=== PATIENT | female | born 1935 | race Caucasian/White ===

== ENCOUNTER 2018-03-28 11:37 | Inpatient (IN) ==
--- NOTE | 2018-03-28 12:40 | Emergency Department Note ---
Disposition Clinical Impression: Syncopal episodes Qualifiers: Syncope type: unspecified Qualified Code(s): R55 - Syncope and collapse Closed fracture of distal end of radius Qualifiers: Encounter type: initial encounter Fracture morphology: other intra-articular Laterality: right Qualified Code(s): S52.571A - Other intraarticular fracture of lower end of right radius, initial encounter for closed fracture Disposition: Admitted As Inpatient Condition: Fair Forms: ED Satisfaction Letter Fall HPI - General Chief Complaint: ED Fall Stated Complaint: Fall/Right arm/head injury Time Seen by Provider: 03/28/18 11:52 Source: patient, family - History of Present Illness Pt Subjective Complaint: fall Onset (ago): hour(s) Fall From: standing Fall Witnessed: no Place Fall Occurred: home Loss of Consciousness: unsure Prolonged Down Time?: no Symptoms Prior to Fall: none Context: unknown Location of injury: head Location of injury - extremities: Right: hand (and wrist) Severity: moderate Quality: dull, aching Associated symptoms (after fall): Denies: headache, neck pain, numbness, weakness, chest pain, shortness of breath, abdominal pain, hematuria, unable to walk, lightheaded, vertigo, confusion - Related Data Home Medications Medication Instructions Recorded Confirmed Allopurinol [Zyloprim 300 MG] 300 mg PO DAILY 03/20/15 05/07/17 Carvedilol [Coreg] 12.5 mg PO BID 03/20/15 05/07/17 Cholecalciferol (Vitamin D3) 1,000 unit PO DAILY 03/20/15 05/07/17 [Vitamin D3] Cyclobenzaprine [Flexeril] 10 mg PO PRN PRN 03/20/15 05/07/17 Docusate Sodium [Colace] 100 mg PO BID PRN 03/20/15 05/07/17 Gabapentin [Neurontin] 800 mg PO TID 03/20/15 05/07/17 Polyethylene Glycol 3350 [MiraLAX] 17 gm PO DAILY PRN 03/20/15 05/07/17 Potassium Chloride 10 meq PO TID 03/20/15 05/07/17 [place] Oil/[place]-3 Fatty Acids 1 each PO DAILY 03/20/15 05/07/17 [Fish Oil 500 mg Softgel] Spironolactone [Aldactone] 25 mg PO DAILY 03/20/15 05/07/17 Aspirin 325 mg PO DAILY 06/04/15 05/07/17 Ergocalciferol (VITAMIN D2) 50,000 unit PO QWEEK 06/04/15 05/07/17 [Vitamin D2 (50,000 UNIT)] Sulindac 150 mg PO 2XW PRN 09/03/15 05/07/17 Oxycodone HCl/Acetaminophen 1 each PO Q6H PRN 12/27/15 05/07/17 [Percocet 7.5-325 mg Tablet] Citalopram [CeleXA] 20 mg PO DAILY 04/03/16 05/07/17 Calcium Carbonate/Vitamin D3 1 each PO DAILY 11/06/16 05/07/17 [Calcium 600 + Vit D Tablet] PredniSONE [Grady] 5 mg PO BID 11/06/16 05/07/17 Albuterol Sulfate [Ventolin Hfa] 18 gm IH AD PRN 09/11/17 09/11/17 Previous Rx's Medication Instructions Recorded Diazepam [Valium] 5 mg PO BID #21 tablet 06/13/15 Furosemide [Lasix] 40 mg PO DAILY tablet 06/13/15 MOM Conc [MILK OF MAGNESIA conc] 10 ml PO TID PRN #0 [id number] 06/13/15 Gluc HCl/Csa/Collagen/Hyalur A 1 each PO DAILY #90 capsule 12/28/15 [Glucosamine Chondroitin Cap] Letrozole [Femara] 2.5 mg PO DAILY #90 tablet 07/24/16 Clotrimazole/Betamethasone Dip 1 applic TP TID 15 Days cream..g. 09/11/17 [Lotrisone Cream] Letrozole [Femara] 2.5 mg PO DAILY #90 tablet 12/04/17 Allergies Allergy/AdvReac Type Severity Reaction Status Date / Time adhesive tape Allergy Rash Verified 09/11/17 15:21 metronidazole Allergy Itching Verified 09/11/17 15:21 morphine [From Avinza] Allergy Unresponsiv Verified 09/11/17 15:21 e Quinolones Allergy Hives Verified 09/11/17 15:21 Tetracycline Allergy Hives Verified 09/11/17 15:21 morphine Allergy Hallucinati Uncoded 09/11/17 15:21 ng All systems ED: reviewed and negative except as stated. Review of Systems: As Per HPI Constitutional: Denies: fever, chills, weakness Eyes: Denies: vision change Cardiovascular: Denies: chest pain, palpitations, dyspnea on exertion, orthopnea , edema, syncope, paroxysmal nocturnal dyspnea Respiratory: Denies: cough, dyspnea, wheezes, hemoptysis Gastrointestinal: Denies: abdominal pain, nausea, vomiting, diarrhea Musculoskeletal: Reports: as per HPI, joint swelling, arthralgia. Denies: back pain, neck pain Neurological: Denies: headache, weakness, numbness, paresthesias, confusion, vertigo Hematological/Lymphatic: Denies: easy bleeding, easy bruising Fall PMH - Past Medical History Medical history: Reports: arthritis, atrial fibrillation, cancer, coronary artery disease, GERD, hypertension, renal disease, thyroid disease Surgical history: Reports: hysterectomy, knee replacement Psychiatric history: Reports: depression PHOTOGRAPHIC ARTIST history: Reports: no PHOTOGRAPHIC ARTIST history - Social History Smoking Status: Never smoker Alcohol use: Reports: none Drug use: Reports: none Physical Exam - General Limitations: no limitations General appearance: alert, in no apparent distress - Head Head exam: atraumatic, normocephalic, normal inspection - Eye Eye exam: Present: normal appearance, PERRL. Absent: scleral icterus, conjunctival injection, periorbital swelling - ENT ENT exam: mucous membranes moist - Neck Neck exam: Present: normal inspection, full ROM, trachea midline. Absent: tenderness, meningismus - Expanded Neck Exam Neck exam focused ED: Absent: midline tenderness, paraspinal tenderness, tenderness (other), anterior neck swelling, JVD - Chest Chest inspection: Present: normal inspection, symmetric chest wall rise. Absent : tenderness - Respiratory Respiratory exam: Present: normal lung sounds bilaterally. Absent: respiratory distress - Cardiovascular Cardiovascular exam: Present: regular rate, normal rhythm - Abdominal Exam Abdominal exam: Present: soft, Non-Tender. Absent: mass - Extremities Exam Extremities exam: Present: tenderness, normal capillary refill, joint swelling - Expanded Upper Extremity Exam Shoulder exam: Present: normal inspection, full ROM. Absent: tenderness Arm exam: Present: normal inspection. Absent: tenderness Elbow exam: Present: normal inspection, full ROM. Absent: tenderness Forearm/Wrist exam: Present: tenderness, swelling, ecchymosis, tenderness over anatomical snuff box, pain with axial thumb loading. Absent: full ROM, deformity, crepitus, dislocation, erythema Hand exam: Present: tenderness, swelling, ecchymosis. Absent: full ROM, deformity, crepitus Neuromotor exam: Normal: wrist extension, thumb opposition, thumb IP flexion, thumb adduction, fingers 2-5 abduction Neurosensory exam: Normal: radial nerve, ulnar nerve, median nerve Hand tendon exam: Normal: flexor digitorum profundus (location), flexor digitorum superficialis (location), extensor tendon (location) Vascular exam: Normal: capillary refill, radial pulse, ulnar pulse - Expanded Lower Extremity Exam Hip/Pelvis exam: Present: full ROM. Absent: tenderness Upper leg exam: Absent: tenderness Knee exam: Present: full ROM. Absent: tenderness Lower leg exam: Present: full ROM. Absent: tenderness Ankle exam: Present: full ROM. Absent: tenderness Foot/toe exam: Present: full ROM. Absent: tenderness Gait: not tested/not observed - Back Exam Back exam: Absent: tenderness, CVA tenderness (R), CVA tenderness (L), muscle spasm, paraspinal tenderness, vertebral tenderness, sciatic notch tenderness (R) , sciatic notch tenderness (L) - Neurological Exam Neurological exam: Present: alert, oriented X3, CN II-XII intact. Absent: motor sensory deficit - Psychiatric Psychiatric exam: Present: normal affect, normal mood - Skin Skin exam: Present: warm, dry, intact, normal color Course Course Narrative: Patient presents from home with has bárbara and s son-in-law for evaluation of fall with right wrist pain. She states that she walked to the bathroom, shut the door was standing at the sink with a cloth and was about to wash her face, then she woke up on the floor. Her has been no was in the living room and heard a side and then heard her call for help. She initially stated that she did not lose consciousness, however, describes it as standing one minute, then waking up on the floor, the next minute. She believes she fell backward. She states that she may have struck her head on the door. She denies headache, vision changes, dizziness, vertigo, fever, chills, nausea, vomiting, recent illnesses. She complains only of pain in her right hand and wrist where she has bruising and swelling. Her and son state that she has had several falls. She has not required hospitalization or ER evaluation for these falls. She states, "I have no idea why I fell." She has had no chest pain, shortness of breath or dyspnea on exertion. No recent procedures. She is in remission from breast cancer. She has never had a DVT or PE. She denies recent cough or hemoptysis. She denies cardiac history. Syncope workup initiated along with x- rays of the right upper extremity, CT of the head and cervical spine. EKG shows sinus rhythm, rate of 47 with a prolonged HARPREET and left axis deviation. It appears to be unchanged compared to previous. EKG reviewed by Dr. Paul as well. CT of the head was read by the radiologist as no acute abnormality. CT of the cervical spine read by the radiologist as degenerative changes, anterolisthesis unchanged compared to previous. No acute abnormality. X-rays of the right wrist and hand were read by the radiologist as comminuted impacted intra-articular distal radius fracture. Volar Ortho-Glass splint was applied by the tech. Post-application neurovascular exam is normal. Sling was applied. I had a long discussion with the patient about the importance of further evaluation with respect to possible syncopal episode. Initially she stated that she wanted to go home. Case had previously been discussed with Dr. Paul. He has reviewed the EKG lab and radiology findings. He also discussed the importance of staying with the patient. She is now agreeable with being admitted. Hospitalist was contacted. Patient has been accepted. - Consultations Consultation #1: Per request of the hospitalist, Dr. Toth was consulted. He states that he will see the patient in the hospital. Time: 16:20 Vital Signs Temperature 98.0 F 03/28/18 12:02 Pulse Rate 69 03/28/18 12:02 Respiratory Rate 16 03/28/18 12:02 Blood Pressure 149/83 03/28/18 12:02 O2 Sat by Pulse Oximetry 94 03/28/18 12:02 Temperature 98.0 F 03/28/18 12:15 Pulse Rate 78 03/28/18 15:10 Respiratory Rate 18 03/28/18 15:10 Blood Pressure 135/66 03/28/18 15:10 O2 Sat by Pulse Oximetry 100 03/28/18 15:10 Oxygen Delivery Oxygen Delivery Room Air Fall - Medical Records Medical records reviewed: Yes I reviewed the patient's medical records. - Lab Data Lab results reviewed: Yes I reviewed the patient's lab results. Lab results narrative: Laboratory Last Values WBC 5.3 K/mcL (4.3-11.1) 03/28/18 13:03 RBC 3.62 M/mcL (3.82-4.97) L 03/28/18 13:03 Hgb 12.3 g/dL (11.5-15.4) 03/28/18 13:03 Hct 38.0 % (35.3-44.9) 03/28/18 13:03 MCV 105.0 fL (83.0-100.0) H 03/28/18 13:03 MCH 34.0 pg (28.0-33.3) H 03/28/18 13:03 MCHC 32.4 g/dL (31.6-35.5) 03/28/18 13:03 RDW 14.9 % (11.5-14.5) H 03/28/18 13:03 Plt Count 130 K/mcL (140-400) L 03/28/18 13:03 MPV 10.3 fL (9.4-12.4) 03/28/18 13:03 Immature Gran % 0.4 % (0-4) 03/28/18 13:03 Seg Neutrophils % 66.5 % 03/28/18 13:03 Lymphocytes % 17.7 % 03/28/18 13:03 Monocytes % 11.8 % 03/28/18 13:03 Eosinophils % 3.0 % 03/28/18 13:03 Basophils % 0.6 % 03/28/18 13:03 Neutrophils # 3.5 K/mcL (1.6-8.9) 03/28/18 13:03 Lymphocytes # 0.9 K/mcL (0.6-4.6) 03/28/18 13:03 Monocytes # 0.6 K/mcL (0.0-1.3) 03/28/18 13:03 Eosinophils # 0.2 K/mcL (0.0-0.6) 03/28/18 13:03 Basophils # 0.0 K/mcL (0.0-0.2) 03/28/18 13:03 Sodium 136 mEq/L (136-145) 03/28/18 13:03 Potassium 3.9 mEq/L (3.5-5.1) 03/28/18 13:03 Chloride 101 mEq/L (98-107) 03/28/18 13:03 Carbon Dioxide 29 mEq/L (23-29) 03/28/18 13:03 BUN 27 mg/dL (8-23) H 03/28/18 13:03 Creatinine 1.41 mg/dL (0.60-1.20) H 03/28/18 13:03 Est GFR ( Amer) 43 (> 60) L 03/28/18 13:03 Est GFR (Non-Af Amer) 36 (> 60) L 03/28/18 13:03 BUN/Creatinine Ratio 19 (6-26) 03/28/18 13:03 Glucose 131 mg/dL (70-105) H 03/28/18 13:03 Calculated Osmolality 289 (280-300) 03/28/18 13:03 Calcium 11.0 mg/dL (8.6-10.3) H 03/28/18 13:03 Total Bilirubin 0.5 mg/dL (0.3-1.0) 03/28/18 13:03 AST 16 Units/L (13-39) 03/28/18 13:03 ALT 7 Units/L (7-52) 03/28/18 13:03 Alkaline Phosphatase 66 Units/L (34-104) 03/28/18 13:03 Troponin I < 0.03 ng/mL (< 0.04) 03/28/18 13:03 Serum Total Protein 6.4 g/dL (6.4-8.9) 03/28/18 13:03 Albumin 3.6 g/dL (3.5-5.7) 03/28/18 13:03 Globulin 2.8 g/dL (2.4-3.5) 03/28/18 13:03 Albumin/Globulin Ratio 1.3 (1.1-2.2) 03/28/18 13:03 Urine Color Yellow (Yellow) 03/28/18 14:19 Urine Clarity Clear (Clear) 03/28/18 14:19 Urine pH 6.5 pH Units (5.0-8.0) 03/28/18 14:19 Ur Specific [place] 1.010 (1.010-1.025) 03/28/18 14:19 Urine Protein Negative mg/dL (Neg-Trace) 03/28/18 14:19 Urine Glucose (UA) Normal mg/dL (Normal) 03/28/18 14:19 Urine Ketones Negative mg/dL (Negative) 03/28/18 14:19 Urine Blood Trace-intact (Negative) H 03/28/18 14:19 Urine Nitrite Negative (Negative) 03/28/18 14:19 Urine Bilirubin Negative (Negative) 03/28/18 14:19 Urine Urobilinogen Normal mg/dL (Normal) 03/28/18 14:19 Ur Leukocyte Esterase Trace (Negative) H 03/28/18 14:19 Urine Microscopic WBC 0-3 per hpf (0-3) 03/28/18 14:19 Ur Squamous Epith Cells Few per lpf (None-Few) 03/28/18 14:19 Urine Bacteria Few per hpf (None-Few) 03/28/18 14:19 Ur Culture Indicated? YES (NO) A 03/28/18 14:19 Result diagrams: 03/28/18 13:03 03/28/18 13:03 Lab Results 03/28/18 03/28/18 03/28/18 Range/Units 13:03 13:03 13:03 WBC 5.3 (4.3-11.1) K/mcL RBC 3.62 L (3.82-4.97) M/mcL Hgb 12.3 (11.5-15.4) g/dL Hct 38.0 (35.3-44.9) % MCV 105.0 H (83.0-100.0) fL MCH 34.0 H (28.0-33.3) pg MCHC 32.4 (31.6-35.5) g/dL RDW 14.9 H (11.5-14.5) % Plt Count 130 L (140-400) K/mcL MPV 10.3 (9.4-12.4) fL Immature Gran % 0.4 (0-4) % Seg Neutrophils % 66.5 % Lymphocytes % 17.7 % Monocytes % 11.8 % Eosinophils % 3.0 % Basophils % 0.6 % Neutrophils # 3.5 (1.6-8.9) K/mcL Lymphocytes # 0.9 (0.6-4.6) K/mcL Monocytes # 0.6 (0.0-1.3) K/mcL Eosinophils # 0.2 (0.0-0.6) K/mcL Basophils # 0.0 (0.0-0.2) K/mcL Sodium 136 (136-145) mEq/L Potassium 3.9 (3.5-5.1) mEq/L Chloride 101 (98-107) mEq/L Carbon Dioxide 29 (23-29) mEq/L BUN 27 H (8-23) mg/dL Creatinine 1.41 H (0.60-1.20) mg/dL Est GFR ( Amer) 43 L (> 60) Est GFR (Non-Af Amer) 36 L (> 60) BUN/Creatinine Ratio 19 (6-26) Glucose 131 H (70-105) mg/dL Calculated Osmolality 289 (280-300) Calcium 11.0 H (8.6-10.3) mg/dL Total Bilirubin 0.5 (0.3-1.0) mg/dL AST 16 (13-39) Units/L ALT 7 (7-52) Units/L Alkaline Phosphatase 66 (34-104) Units/L Troponin I < 0.03 (< 0.04) ng/mL Serum Total Protein 6.4 (6.4-8.9) g/dL Albumin 3.6 (3.5-5.7) g/dL Globulin 2.8 (2.4-3.5) g/dL Albumin/Globulin Ratio 1.3 (1.1-2.2) Urine Color (Yellow) Urine Clarity (Clear) Urine pH (5.0-8.0) pH Units Ur Specific [place] (1.010-1.025) Urine Protein (Neg-Trace) mg/dL Urine Glucose (UA) (Normal) mg/dL Urine Ketones (Negative) mg/dL Urine Blood (Negative) Urine Nitrite (Negative) Urine Bilirubin (Negative) Urine Urobilinogen (Normal) mg/dL Ur Leukocyte Esterase (Negative) Urine Microscopic WBC (0-3) per hpf Ur Squamous Epith Cells (None-Few) per lpf Urine Bacteria (None-Few) per hpf Ur Culture Indicated? (NO) 03/28/18 Range/Units 14:19 WBC (4.3-11.1) K/mcL RBC (3.82-4.97) M/mcL Hgb (11.5-15.4) g/dL Hct (35.3-44.9) % MCV (83.0-100.0) fL MCH (28.0-33.3) pg MCHC (31.6-35.5) g/dL RDW (11.5-14.5) % Plt Count (140-400) K/mcL MPV (9.4-12.4) fL Immature Gran % (0-4) % Seg Neutrophils % % Lymphocytes % % Monocytes % % Eosinophils % % Basophils % % Neutrophils # (1.6-8.9) K/mcL Lymphocytes # (0.6-4.6) K/mcL Monocytes # (0.0-1.3) K/mcL Eosinophils # (0.0-0.6) K/mcL Basophils # (0.0-0.2) K/mcL Sodium (136-145) mEq/L Potassium (3.5-5.1) mEq/L Chloride (98-107) mEq/L Carbon Dioxide (23-29) mEq/L BUN (8-23) mg/dL Creatinine (0.60-1.20) mg/dL Est GFR ( Amer) (> 60) Est GFR (Non-Af Amer) (> 60) BUN/Creatinine Ratio (6-26) Glucose (70-105) mg/dL Calculated Osmolality (280-300) Calcium (8.6-10.3) mg/dL Total Bilirubin (0.3-1.0) mg/dL AST (13-39) Units/L ALT (7-52) Units/L Alkaline Phosphatase (34-104) Units/L Troponin I (< 0.04) ng/mL Serum Total Protein (6.4-8.9) g/dL Albumin (3.5-5.7) g/dL Globulin (2.4-3.5) g/dL Albumin/Globulin Ratio (1.1-2.2) Urine Color Yellow (Yellow) Urine Clarity Clear (Clear) Urine pH 6.5 (5.0-8.0) pH Units Ur Specific [place] 1.010 (1.010-1.025) Urine Protein Negative (Neg-Trace) mg/dL Urine Glucose (UA) Normal (Normal) mg/dL Urine Ketones Negative (Negative) mg/dL Urine Blood Trace-intact H (Negative) Urine Nitrite Negative (Negative) Urine Bilirubin Negative (Negative) Urine Urobilinogen Normal (Normal) mg/dL Ur Leukocyte Esterase Trace H (Negative) Urine Microscopic WBC 0-3 (0-3) per hpf Ur Squamous Epith Cells Few (None-Few) per lpf Urine Bacteria Few (None-Few) per hpf Ur Culture Indicated? YES A (NO) - Radiology Data Radiology results reviewed: Yes I reviewed the patient's radiology results. Cervical Spine CT 03/28/18 12:36 IMPRESSION: No acute abnormality of the cervical spine. Multilevel degenerative changes of the cervical spine have mildly progressed since the prior examination. Degenerative grade 1 anterolisthesis at T1-T2 is not significantly changed. D/ / 03/28/2018 14:09:22 Ziyad Bauman MD / gilrter Interpreting Provider: Ziyad Bauman MD Hand X-Ray 03/28/18 12:36 IMPRESSION: Mildly impacted, comminuted, intra-articular fracture of the distal radial metaphysis. No acute osseous abnormality of the right hand. D/ / 03/28/2018 13:13:40 Ziyad Bauman MD / new Interpreting Provider: Ziyad Bauman MD Head CT 03/28/18 12:36 IMPRESSION: No acute intracranial abnormality. D/ / Ziyad Bauman MD / Ziyad Bauman MD Interpreting Provider: Ziyad Bauman MD Wrist X-Ray 03/28/18 12:36 IMPRESSION: Mildly impacted, comminuted, intra-articular fracture of the distal radial metaphysis. No acute osseous abnormality of the right hand. D/ / 03/28/2018 13:13:40 Ziyad Bauman MD / new Interpreting Provider: Ziyad Bauman MD - EKG Data EKG attestation: Yes I reviewed and interpreted this EKG. EKG shows normal: sinus rhythm Rate: normal Rhythm: NSR, PVC's [place]/QRS: left axis deviation When compared to previous EKG there are: no significant changes Interpretation: no acute changes, unchanged when compared to prior tracing (date )
[2018-03-28 13:24] LABS: Basophils % 0.6 %; Eosinophils # 0.2 K/mcL (0.0-0.6); Hemoglobin 12.3 g/dL (11.5-15.4); Immature Granulocytes % 0.4 % (0-4); Lymphocytes # 0.9 K/mcL (0.6-4.6); Lymphocytes % 17.7 %; Mean Corpuscular HGB Conc 32.4 g/dL (31.6-35.5); Mean Platelet Volume 10.3 fL (9.4-12.4); Monocytes # 0.6 K/mcL (0.0-1.3); Monocytes % 11.8 %; Neutrophils # 3.5 K/mcL (1.6-8.9); Platelet Count 130 K/mcL (140-400); Red Blood Count 3.62 M/mcL (3.82-4.97); Red Cell Distribution Width 14.9 % (11.5-14.5); Segmented Neutrophils % 66.5 %
[2018-03-28 13:40] LABS: Albumin 3.6 g/dL (3.5-5.7); Albumin/Globulin Ratio 1.3 (1.1-2.2); Bilirubin,Total 0.5 mg/dL (0.3-1.0); Globulin 2.8 g/dL (2.4-3.5); Potassium 3.9 mEq/L (3.5-5.1); Total Protein 6.4 g/dL (6.4-8.9)
[2018-03-28 14:29] LABS: Bilirubin,Urine Negative (Negative); Blood,Urine Trace-intact (Negative); Clarity,Urine Clear (Clear); Color,Urine Yellow (Yellow); Glucose,Urine (UA) Normal (Normal); Ketones,Urine Negative (Negative); Leukocyte Esterase,Urine Trace (Negative); Nitrite,Urine Negative (Negative); PH,Urine 6.5 pH Units (5.0-8.0); Protein,Urine Negative (Neg-Trace); Urobilinogen,Urine Normal (Normal)
[2018-03-28 14:52] LABS: Squamous Epithelial Cell,Urine Few per lpf (None-Few); WBC,Urine 0-3 per hpf (0-3)
[2018-03-28 14:54] LABS: Bacteria,Urine Few per hpf (None-Few)
--- NOTE | 2018-03-28 18:00 | Internal Med History&Physical ---
<Artem Okeefe Latanya - Last Filed: 03/28/18 17:47> Date of Encounter: 03/28/18 Time of Encounter: 17:48 Internal Medicine - H&P: HPI Chief complaint: Syncope Admitted From: Home Plans for Post Hospital Care: Home History of present illness: Ms. Carter is a 82 year old female who presented to the [facility] emergency department with a chief complaint of fall and syncope. She stated she walked from her bedroom to her bathroom, splashed some water on her face and was just about to use the toilet when she passed out. She stated that she did not exactly remember the beginning of the syncopal episode but did remember hitting her head, but then did not remember hitting the floor and she woke up on the floor. Her heard the fall and came in and found her, by the time he came in she was awake and conscious and in her normal mental state. She denied any precipitating symptoms prior to the syncopal episode and any symptoms afterwards other than right wrist pain. She denied precipitating chest pain, lightheadedness, palpitations, and afterwards any bowel or bladder loss or confusion. Her review of systems unrelated to the fall is a chronic state of dyspnea on exertion, bilateral lower extremity swelling and pain that impedes her ability to ambulate other than short trips to the bathroom. Her past medical history includes atrial fibrillation, breast cancer, coronary artery disease, gastroesophageal reflux disease, hypertension, chronic kidney disease stage III, hypothyroidism. Based on her medication I am inferring that she also has a history of some chronic respiratory disease that is not documented and that she cannot name. She denies a smoking history, alcohol History, drug history. CT head and cervical spine revealed no acute process. X-ray of the hand revealed a distal intra-articular comminuted radial fracture. EKG showed sinus rhythm, bradycardia, prolonged HARPREET, left axis deviation. UA was positive for trace leukocyte esterase and so was sent for culture. Patient was admitted to observation for syncopal workup. Past Med Surg Social Fam HX - Past Medical History Medical history: arthritis, atrial fibrillation, cancer, coronary artery disease , GERD, hypertension, renal disease, thyroid disease Additional medical history: stage 4 kidney,diverticulosis,heart disease, breast cancer Psychiatric history: depression - Past Surgical History Surgical History: hysterectomy, knee replacement Additional surgical history: Partial bilateral breast removal d/t cancer. Bilateral knee replacement - Social History Smoking Status: Never smoker Smokeless Tobacco Status: No Alcohol use: none Drug use: none - Family History Father Family Member Ethnicity: Non- Living Status: Hx Family Cardiac Disorders: Yes (CAD) Hx Family Respiratory Disorders: No Hx Family Cancer: No Hx Family GI Disorders: No Hx Family Endocrine Disorder: No Hx Family Neuromuscular Disorders: No Hx Family Neurologic Disorders: No Hx Family HEENT Disorders: No Hx Family Autoimmune Disorders: No Mother Family Member Ethnicity: Non- Living Status: Hx Family Cardiac Disorders: No Hx Family Respiratory Disorders: No Hx Family Cancer: Yes (lymphoma) Hx Family GI Disorders: No Hx Family Endocrine Disorder: No Hx Family Neuromuscular Disorders: No Hx Family Neurologic Disorders: No Hx Family HEENT Disorders: No Hx Family Autoimmune Disorders: No Internal Medicine - H&P: Meds Allopurinol [Zyloprim 300 MG] 300 mg PO DAILY 03/20/15 [History] Docusate Sodium [Colace] 100 mg PO BID PRN 03/20/15 [History] Sulindac 150 mg PO 2XW PRN 09/03/15 [History] Gluc HCl/Csa/Collagen/Hyalur A [Glucosamine Chondroitin Cap] 1 each PO DAILY # 90 capsule 12/28/15 [Rx] Citalopram [CeleXA] 20 mg PO DAILY 04/03/16 [History] Calcium Carbonate/Vitamin D3 [Calcium 600 + Vit D Tablet] 1 each PO DAILY [History] PredniSONE [Grady] 5 mg PO BID 11/06/16 [History] Albuterol Sulfate [Ventolin Hfa] 2 puff IH Q4H PRN 09/11/17 [History] Clotrimazole/Betamethasone Dip [Lotrisone Cream] 1 applic TP TID 15 Days cream..g. 09/11/17 [Rx] Letrozole [Femara] 2.5 mg PO DAILY #90 tablet 12/04/17 [Rx] Aspirin Enteric Coated [Aspirin EC] 325 mg PO DAILY 03/29/18 [History] Calcitriol [Rocaltrol] 0.25 mcg PO DAILY 03/29/18 [History] Calcium Carbonate [Calcium] 600 mg PO BID 03/29/18 [History] Carvedilol [Carvedilol] 12.5 mg PO DAILY 03/29/18 [History] Cyanocobalamin (B-12) [Vitamin B12] 1,000 mcg IM QMONTH 03/29/18 [History] Cyanocobalamin (Vitamin B-12) [Vitamin B12] 1,000 mcg PO DAILY 03/29/18 [History ] Ergocalciferol (VITAMIN D2) [Vitamin D2] 50,000 unit PO QWEEK 03/29/18 [History] Fluticasone Propionate Nasal [Flonase] 50 mcg NS DAILY 03/29/18 [History] Furosemide [Lasix] 40 mg PO DAILY 03/29/18 [History] Gabapentin [Neurontin] 800 mg PO TID 03/29/18 [History] Levothyroxine [Synthroid] 25 mcg PO DAILY 03/29/18 [History] [place]lee-3/Dha/Epa/Fish Oil [Fish Oil EC 1,000 mg Softgel] 1 cap PO DAILY 03/29/18 [History] OxyCODONE/APAP 7.5/325 [Percocet 7.5/325 MG] 1 tab PO Q6H PRN 03/29/18 [History] Polyethylene Glycol 3350 [MiraLAX] 17 gm PO DAILY 03/29/18 [History] Potassium Chloride [Klor-Con 10] 10 meq PO TID 03/29/18 [History] Spironolactone [Spironolactone] 25 mg PO DAILY 03/29/18 [History] diazePAM [Valium] 5 mg PO BID PRN 03/29/18 [History] metOLazone [Zaroxolyn] 2.5 mg PO DAILY 03/29/18 [History] raNITIdine HCl [Ranitidine HCl] 300 mg PO DAILY 03/29/18 [History] 3 Allergy/AdvReac Type Severity Reaction Status Date / Time adhesive tape Allergy Rash Verified 09/11/17 15:21 metronidazole Allergy Itching Verified 09/11/17 15:21 morphine [From Avinza] Allergy Unresponsiv Verified 09/11/17 15:21 e Quinolones Allergy Hives Verified 09/11/17 15:21 Tetracycline Allergy Hives Verified 09/11/17 15:21 morphine Allergy Hallucinati Uncoded 09/11/17 15:21 ng All Systems PM: A 10-system review of systems was performed and is negative for pertinent findings except as documented above in the HPI. - Constitutional Constitutional: night sweats, no fever(s) - EENT Eyes: no loss of vision - Cardiovascular Cardiovascular ROS IM: dyspnea on exertion, edema, syncope, no chest pain, no palpitations - Respiratory Respiratory: dyspnea on exertion, no cough - Gastrointestinal Gastrointestinal: no abdominal pain - Genitourinary Genitourinary: no urinary incontinence - Musculoskeletal Musculoskeletal ROS IM: deformity, no numbness - Neurological Neurological ROS: frequent falls, no behavioral changes, no confusion, no convulsions, no focal weakness, no loss of vision - Psychiatric Psychiatric: depression, no confusion - Constitutional Vitals: Temp Pulse Resp BP Pulse Ox 98.0 F 57 18 133/61 92 03/28/18 12:15 03/28/18 16:08 03/28/18 16:08 03/28/18 16:08 03/28/18 16:08 Exam: Patient was in no acute distress, alert and oriented 3 Cranial nerves II through XII intact Heart in a bradycardic rate and irregular rhythm, no murmur or gallop auscultated Lungs sounds were diffusely diminished without wheezes or rales auscultated Abdomen obese and soft and nontender with normal bowel sounds present Bilateral upper and lower extremities with sensation and motor intact and without focal deficits Bilateral lower extremities edematous without pitting, erythematous and tender to palpation Skin warm and dry Internal Med - H&P Results - Labs CBC & Chem 7: 03/28/18 13:03 03/28/18 13:03 - Assessment and plan (1) Syncope and collapse Current Visit: Yes Status: Acute Assessment and plan: Patient presented with chief complaint of fall secondary to syncopal episode Family states she had multiple falls in November, and a few more in August prior, but none before that Differentials include stroke, arrhythmia, seizure, hypoxia, heart failure CT head was negative, patient has history of known atrial fibrillation that is rate controlled Patient has no known history of seizures and there was no post ictal state or seizure activity witnessed Patient does complain of dyspnea on exertion and edema Physical exam notable for edema and diminished lung sounds Plan BNP, echocardiogram, carotid Doppler bilateral, PT/OT consultation We will also address patient's multiple medications with sedative potential Continuous cardiac monitoring and pulse oximetry (2) Diastolic CHF Current Visit: Yes Status: Suspected Assessment and plan: Patient does have a history of recorded treatment for heart failure Last echocardiogram done in 2017 documents mild diastolic heart failure with ejection fraction of 55% Patient does complain of dyspnea on exertion and edema Physical exam demonstrates significant edema Plan Repeat echocardiogram and BNP We will treat accordingly based on labs and imaging Qualifiers: Heart failure chronicity: acute on chronic Qualified Code(s): I50.33 - Acute on chronic diastolic (congestive) heart failure (3) CKD (chronic kidney disease), stage III Current Visit: Yes Status: Chronic Assessment and plan: History of chronic kidney disease stage III treated by nephrology Creatinine on admission is 1.4 which appears to be patient's baseline based on previous documentation We will renally dose medications and avoid nephrotoxins when possible Continue home medication of spironolactone and furosemide (4) CAD (coronary artery disease) Current Visit: Yes Status: Chronic Assessment and plan: Patient with history of coronary artery disease She does have history of catheterization without percutaneous coronary intervention We will continue home medications of carvedilol and aspirin Qualifiers: Coronary Disease-Associated Artery/Lesion type: chilkat artery [place] vs. transplanted heart: chilkat heart Associated angina: without angina Qualified Code(s): I25.10 - Atherosclerotic heart disease of chilkat coronary artery without angina pectoris (5) Atrial fibrillation Current Visit: Yes Status: Acute Assessment and plan: History of atrial fibrillation Based on EKG and exam here it appears to be paroxysmal Rate controlled We will continue home medications of carvedilol and monitor Qualifiers: Atrial fibrillation type: chronic Qualified Code(s): I48.2 - Chronic atrial fibrillation (6) Closed fracture of distal end of radius Current Visit: Yes Status: Acute Assessment and plan: Distal intra-articular comminuted fracture of radius found on x-ray at admission Volar splint was applied in the emergency department We will continue home medication of Percocet for pain control We will continue to monitor for vascular or neurologic compromise of the extremity Qualifiers: Encounter type: initial encounter Fracture morphology: other intra- articular Laterality: right Qualified Code(s): S52.571A - Other intraarticular fracture of lower end of right radius, initial encounter for closed fracture (7) Anxiety and depression Current Visit: Yes Status: Acute Assessment and plan: Patient with history of depression and anxiety apparently as a result of past trauma Patient is taking citalopram and diazepam We will continue these home medications However we may decrease the dose of diazepam in the setting of syncope workup - Time Spent With Patient Total time spent is greater than 50% in coordination of care (as documented) at patient's floor/unit and/or counseling patient: <Beth Ruelas - Last Filed: 03/29/18 18:01> Date of Encounter: 03/29/18 Internal Medicine - H&P: HPI History of present illness: Ms. Carter is a 82 year old female All Systems PM: A 10-system review of systems was performed and is negative for pertinent findings except as documented above in the HPI. - Constitutional Vitals: Temp Pulse Resp BP Pulse Ox 98.1 F 71 18 145/84 93 03/29/18 14:12 03/29/18 14:12 03/29/18 14:12 03/29/18 14:12 03/29/18 14:12 Internal Med - H&P Results - Labs CBC & Chem 7: 03/29/18 00:40 03/29/18 00:40 Labs: Short CBC 03/29/18 Range/Units 00:40 WBC 5.2 (4.3-11.1) K/mcL Hgb 12.2 (11.5-15.4) g/dL Hct 37.4 (35.3-44.9) % Plt Count 134 L (140-400) K/mcL Neutrophils # 2.8 (1.6-8.9) K/mcL BMP 03/29/18 00:40 Sodium 137 Potassium 4.2 Chloride 100 Carbon Dioxide 29 BUN 25 H Creatinine 1.39 H Glucose 104 Calcium 10.9 H - Assessment and plan (1) Diastolic CHF Current Visit: Yes Status: Suspected Qualifiers: Heart failure chronicity: acute on chronic Qualified Code(s): I50.33 - Acute on chronic diastolic (congestive) heart failure (2) CKD (chronic kidney disease), stage III Current Visit: Yes Status: Chronic (3) CAD (coronary artery disease) Current Visit: Yes Status: Chronic Qualifiers: Coronary Disease-Associated Artery/Lesion type: chilkat artery [place] vs. transplanted heart: chilkat heart Associated angina: without angina Qualified Code(s): I25.10 - Atherosclerotic heart disease of chilkat coronary artery without angina pectoris (4) Atrial fibrillation Current Visit: Yes Status: Chronic Qualifiers: Atrial fibrillation type: chronic Qualified Code(s): I48.2 - Chronic atrial fibrillation (5) Closed fracture of distal end of radius Current Visit: Yes Status: Acute Qualifiers: Encounter type: initial encounter Fracture morphology: other intra- articular Laterality: right Qualified Code(s): S52.571A - Other intraarticular fracture of lower end of right radius, initial encounter for closed fracture (6) Syncope and collapse Current Visit: Yes Status: Acute (7) Anxiety and depression Current Visit: Yes Status: Acute - Time Spent With Patient Total time spent is greater than 50% in coordination of care (as documented) at patient's floor/unit and/or counseling patient: - Attending Attestation I examined this patient and my medical decision-making was reviewed with the Resident Physician. I agree with the documented findings, disposition and treatment plan as described except to the extent set forth below.
[2018-03-28] MEDS ORDERED: Naloxone 0.4 MG/ML INJ IVP PRN (18:35)
[2018-03-28] MEDS ORDERED: Acetaminophen 325 MG TABLET PO PRN (18:35)
[2018-03-28] MEDS ORDERED: *HR* OxyCODONE/APAP 5/325 TABLET PO PRN (18:45)
[2018-03-29 01:30] LABS: Basophils % 0.4 %; Eosinophils # 0.2 K/mcL (0.0-0.6); Eosinophils % 3.7 %; Hematocrit 37.4 % (35.3-44.9); Hemoglobin 12.2 g/dL (11.5-15.4); Immature Granulocytes % 0.4 % (0-4); Lymphocytes # 1.3 K/mcL (0.6-4.6); Lymphocytes % 24.4 %; Mean Corpuscular HGB Conc 32.6 g/dL (31.6-35.5); Mean Corpuscular Hemoglobin 33.2 pg (28.0-33.3); Mean Corpuscular Volume 101.9 fL (83.0-100.0); Mean Platelet Volume 11.3 fL (9.4-12.4); Monocytes # 0.9 K/mcL (0.0-1.3); Monocytes % 17.2 %; Neutrophils # 2.8 K/mcL (1.6-8.9); Platelet Count 134 K/mcL (140-400); Red Blood Count 3.67 M/mcL (3.82-4.97); Red Cell Distribution Width 14.9 % (11.5-14.5); Segmented Neutrophils % 53.9 %
[2018-03-29 01:33] LABS: Calcium 10.9 mg/dL (8.6-10.3); Potassium 4.2 mEq/L (3.5-5.1)
--- NOTE | 2018-03-29 12:55 | Orthopedic Consult Note ---
Date of Encounter: 03/29/18 Time of Encounter: 11:50 Assessment and Plan (1) Closed fracture of distal end of radius Current Visit: Yes Status: Acute Xrays reveal right distal radius fracture mildly impacted but nondisplaced. Discussed with Dr. Neil who recommends NONoperative conservative treatment at this time due to patients age and decreased activity level. I discussed this with patient and her family who expressed understanding. The current volar splint is loose and has all fingers enclosed. Someone from [facility] office with come apply a new sugar tong splint for better stabilization. Leave all splint/ dressings in place/ Continue to elevate, sling for comfort. Continue to ice as needed for swelling. ROM of fingers as tolerated. NWB. Patient typically ambulates with walker. Recommend platform walker for assistance to keep weight off wrist. Patient requests appt with Dr. Ro. Office will make appt and fax to floor. Qualifiers: Encounter type: initial encounter Fracture morphology: other intra- articular Laterality: right Qualified Code(s): S52.571A - Other intraarticular fracture of lower end of right radius, initial encounter for closed fracture History of Present Illness Chief complaint: right wrist pain HPI: Ms. Carter is a 82 year old female who presented to the ER yesterday with right wrist pain after a syncopal episode. She states she was in the bathroom washing her hands when next thing she knew she remembers hitting her head. She denies passing out but admits she doesnt remember exactly what happened or how she fell. She has had constant wrist pain since that time that does not radiate. She has chronic tingling in fingers from known carpal tunnel, no worsening or numbness since the fall. States she normally ambulates with a walker. States her splint that was applied in the ER has been sliding off and she actually found in on the floor last night when she woke. Denies any chest pain, SOB, fevers at this time. Past Med Surg Social Fam HX - Past Medical History Medical history: arthritis, atrial fibrillation, cancer, coronary artery disease , GERD, hypertension, renal disease, thyroid disease Additional medical history: stage 4 kidney,diverticulosis,heart disease, breast cancer Psychiatric history: depression - Past Surgical History Surgical History: hysterectomy, knee replacement Additional surgical history: Partial bilateral breast removal d/t cancer. Bilateral knee replacement - Social History Smoking Status: Never smoker Smokeless Tobacco Status: No Alcohol use: none Drug use: none - Family History Father Family Member Ethnicity: Non- Living Status: Hx Family Cardiac Disorders: Yes (CAD) Hx Family Respiratory Disorders: No Hx Family Cancer: No Hx Family GI Disorders: No Hx Family Endocrine Disorder: No Hx Family Neuromuscular Disorders: No Hx Family Neurologic Disorders: No Hx Family HEENT Disorders: No Hx Family Autoimmune Disorders: No Mother Family Member Ethnicity: Non- Living Status: Hx Family Cardiac Disorders: No Hx Family Respiratory Disorders: No Hx Family Cancer: Yes (lymphoma) Hx Family GI Disorders: No Hx Family Endocrine Disorder: No Hx Family Neuromuscular Disorders: No Hx Family Neurologic Disorders: No Hx Family HEENT Disorders: No Hx Family Autoimmune Disorders: No Medications and Allergies Allopurinol [Zyloprim 300 MG] 300 mg PO DAILY 03/20/15 [History] Carvedilol [Coreg] 12.5 mg PO BID 03/20/15 [History] Cholecalciferol (Vitamin D3) [Vitamin D3] 1,000 unit PO DAILY 03/20/15 [History] Cyclobenzaprine [Flexeril] 10 mg PO PRN PRN 03/20/15 [History] Docusate Sodium [Colace] 100 mg PO BID PRN 03/20/15 [History] Gabapentin [Neurontin] 800 mg PO TID 03/20/15 [History] Polyethylene Glycol 3350 [MiraLAX] 17 gm PO DAILY PRN 03/20/15 [History] Potassium Chloride 10 meq PO TID 03/20/15 [History] [place] Oil/Elsie-3 Fatty Acids [Fish Oil 500 mg Softgel] 1 each PO DAILY [History] Spironolactone [Aldactone] 25 mg PO DAILY 03/20/15 [History] Aspirin 325 mg PO DAILY 06/04/15 [History] Ergocalciferol (VITAMIN D2) [Vitamin D2 (50,000 UNIT)] 50,000 unit PO QWEEK [History] Diazepam [Valium] 5 mg PO BID #21 tablet 06/13/15 [Rx] Furosemide [Lasix] 40 mg PO DAILY tablet 06/13/15 [Rx] MOM Conc [MILK OF MAGNESIA conc] 10 ml PO TID PRN #0 [id number] 06/13/15 [Rx] Sulindac 150 mg PO 2XW PRN 09/03/15 [History] Oxycodone HCl/Acetaminophen [Percocet 7.5-325 mg Tablet] 1 each PO Q6H PRN 12/26 [History] Gluc HCl/Csa/Collagen/Hyalur A [Glucosamine Chondroitin Cap] 1 each PO DAILY # 90 capsule 12/28/15 [Rx] Citalopram [CeleXA] 20 mg PO DAILY 04/03/16 [History] Letrozole [Femara] 2.5 mg PO DAILY #90 tablet 07/24/16 [Rx] Calcium Carbonate/Vitamin D3 [Calcium 600 + Vit D Tablet] 1 each PO DAILY [History] PredniSONE [Grady] 5 mg PO BID 11/06/16 [History] Albuterol Sulfate [Ventolin Hfa] 18 gm IH AD PRN 09/11/17 [History] Clotrimazole/Betamethasone Dip [Lotrisone Cream] 1 applic TP TID 15 Days cream..g. 09/11/17 [Rx] Letrozole [Femara] 2.5 mg PO DAILY #90 tablet 12/04/17 [Rx] 3 Allergy/AdvReac Type Severity Reaction Status Date / Time adhesive tape Allergy Rash Verified 09/11/17 15:21 metronidazole Allergy Itching Verified 09/11/17 15:21 morphine [From Avinza] Allergy Unresponsiv Verified 09/11/17 15:21 e Quinolones Allergy Hives Verified 09/11/17 15:21 Tetracycline Allergy Hives Verified 09/11/17 15:21 morphine Allergy Hallucinati Uncoded 09/11/17 15:21 ng All Systems Reviewed: The remainder of the systems were reviewed and are negative - Constitutional Constitutional: as per HPI - Cardiovascular Cardiovascular: as per HPI - Respiratory Respiratory: as per HPI - Musculoskeletal Musculoskeletal: as per HPI Physical Exam - Constitutional Vitals: Temp Pulse Resp BP Pulse Ox 98.3 F 69 18 142/75 91 03/29/18 10:48 03/29/18 10:48 03/29/18 10:48 03/29/18 10:48 03/29/18 10:48 - Wrist & Hand right Location of pain: dorsal wrist (volar splint in place slid all the way down to fingers and stopping at mid forearm. thumb inside FLORENTINO wrap. Wrap was lifting and visible ecchymosis to dorsal hand. good ROM of fingers as splint allowed. brisk cap refill. grossly NV intact. ) Results - Labs Result Diagrams: 03/29/18 00:40 03/29/18 00:40 Labs: Abnormal lab results RBC 3.67 M/mcL (3.82-4.97) L 03/29/18 00:40 MCV 101.9 fL (83.0-100.0) H 03/29/18 00:40 RDW 14.9 % (11.5-14.5) H 03/29/18 00:40 Plt Count 134 K/mcL (140-400) L 03/29/18 00:40 BUN 25 mg/dL (8-23) H 03/29/18 00:40 Creatinine 1.39 mg/dL (0.60-1.20) H 03/29/18 00:40 Est GFR ( Amer) 44 (> 60) L 03/29/18 00:40 Est GFR (Non-Af Amer) 36 (> 60) L 03/29/18 00:40 Calcium 10.9 mg/dL (8.6-10.3) H 03/29/18 00:40 Urine Blood Trace-intact (Negative) H 03/28/18 14:19 Ur Leukocyte Esterase Trace (Negative) H 03/28/18 14:19 Ur Culture Indicated? YES (NO) A 03/28/18 14:19 H & H 03/29/18 Range/Units 00:40 Hgb 12.2 (11.5-15.4) g/dL Hct 37.4 (35.3-44.9) % All other labs normal. - Diagnostic results Wrist/Hand x-ray: report reviewed, image reviewed Consult Discharge Plan - Plan Referrals: Rosalina Bonner, APPLIED BEHAVIOR SCIENCE SPECIALIST [Primary Care Provider] - - Attending Attestation Case and plan of care discussed with supervising physician who was available for all aspects of care.
[2018-03-29] MEDS ORDERED: Cyanocobalamin (B-12) 1,000 MCG/ML VIAL IM SCH (14:15)
--- NOTE | 2018-03-29 14:32 | Internal Med Progress Note ---
<Artem Okeefe - Last Filed: 03/29/18 14:24> Hospitalist Progress Note - Encounter Date of Encounter: 03/29/18 Time of Encounter: 14:24 - Subjective Interval History: Patient seen and examined this morning, no acute events overnight Patient was admitted for evaluation of syncope and fall, also for orthopedic evaluation of fracture Orthopedic consultation recommending conservative nonsurgical management Echocardiogram, orthostatic vitals, carotid Doppler pending Patient has no acute complaints today Denies chest pain, shortness of breath - Exam Vitals: Temp Pulse Resp BP Pulse Ox 98.1 F 71 18 145/84 93 03/29/18 14:12 03/29/18 14:12 03/29/18 14:12 03/29/18 14:12 03/29/18 14:12 Exam: Patient was in no acute distress, alert and oriented 3 Cranial nerves II through XII intact Heart in regular rate and rhythm, no murmur or gallop auscultated Lungs sounds were diffusely diminished without wheezes or rales auscultated Abdomen obese and soft and nontender with normal bowel sounds present Bilateral upper and lower extremities with sensation and motor intact and without focal deficits Bilateral lower extremities edematous without pitting, erythematous and tender to palpation Skin warm and dry - Assessment and Plan (1) Syncope and collapse Current Visit: Yes Status: Acute Assessment and Plan: Patient presented with chief complaint of fall secondary to syncopal episode Family states she had multiple falls in November, and a few more in August prior, but none before that Differentials include stroke, arrhythmia, seizure, hypoxia, heart failure CT head was negative, patient has history of known atrial fibrillation that is rate controlled Patient has no known history of seizures and there was no post ictal state or seizure activity witnessed Patient does complain of dyspnea on exertion and edema Physical exam notable for edema and diminished lung sounds BNP normal Plan echocardiogram, carotid Doppler bilateral, PT/OT consultation We will also address patient's multiple medications with sedative potential Continuous cardiac monitoring and pulse oximetry (2) Diastolic CHF Current Visit: Yes Status: Suspected Assessment and Plan: Patient does have a history of recorded treatment for heart failure Last echocardiogram done in 2017 documents mild diastolic heart failure with ejection fraction of 55% Patient does complain of dyspnea on exertion and edema Physical exam demonstrates significant edema BNP normal Plan Repeat echocardiogram We will treat accordingly based on labs and imaging (3) CKD (chronic kidney disease), stage III Current Visit: Yes Status: Chronic Assessment and Plan: History of chronic kidney disease stage III treated by nephrology Creatinine on admission is 1.4 which appears to be patient's baseline based on previous documentation We will renally dose medications and avoid nephrotoxins when possible Continue home medication of spironolactone and furosemide (4) CAD (coronary artery disease) Current Visit: Yes Status: Chronic Assessment and Plan: Patient with history of coronary artery disease She does have history of catheterization without percutaneous coronary intervention We will continue home medications of carvedilol and aspirin (5) Atrial fibrillation Current Visit: Yes Status: Chronic Assessment and Plan: History of atrial fibrillation Based on EKG and exam here it appears to be paroxysmal Rate controlled We will continue home medications of carvedilol and monitor (6) Closed fracture of distal end of radius Current Visit: Yes Status: Acute Assessment and Plan: Distal intra-articular comminuted fracture of radius found on x-ray at admission Volar splint was applied in the emergency department We will continue home medication of Percocet for pain control We will continue to monitor for vascular or neurologic compromise of the extremity Orthopedics consulted and recommending conservative non surgical management, re- application of sugar tong slpint (7) Anxiety and depression Current Visit: Yes Status: Acute Assessment and Plan: Patient with history of depression and anxiety apparently as a result of past trauma Continue home citalopram and diazepam at lower dose DVT Prophylaxis: subcutaneous heparin 5000 units q12hr - Time Spent with Patient Total time spent is greater than 50% in coordination of care (as documented) at patient's floor/unit and/or counseling patient: Internal Medicine: Result - Labs CBC & Chem 7: 03/29/18 00:40 03/29/18 00:40 Labs: Short CBC 03/29/18 Range/Units 00:40 WBC 5.2 (4.3-11.1) K/mcL Hgb 12.2 (11.5-15.4) g/dL Hct 37.4 (35.3-44.9) % Plt Count 134 L (140-400) K/mcL Neutrophils # 2.8 (1.6-8.9) K/mcL BMP 03/29/18 00:40 Sodium 137 Potassium 4.2 Chloride 100 Carbon Dioxide 29 BUN 25 H Creatinine 1.39 H Glucose 104 Calcium 10.9 H Consult Discharge Plan - Plan Referrals: Rosalina Bonner, [employer]OR [Primary Care Provider] - <Beth Ruelas - Last Filed: 03/29/18 18:01> Hospitalist Progress Note - Encounter Date of Encounter: 03/29/18 - Exam Vitals: Temp Pulse Resp BP Pulse Ox 98.1 F 71 18 145/84 93 03/29/18 14:12 03/29/18 14:12 03/29/18 14:12 03/29/18 14:12 03/29/18 14:12 - Assessment and Plan (1) Diastolic CHF Current Visit: Yes Status: Suspected (2) CKD (chronic kidney disease), stage III Current Visit: Yes Status: Chronic (3) CAD (coronary artery disease) Current Visit: Yes Status: Chronic (4) Atrial fibrillation Current Visit: Yes Status: Chronic (5) Closed fracture of distal end of radius Current Visit: Yes Status: Acute (6) Syncope and collapse Current Visit: Yes Status: Acute (7) Anxiety and depression Current Visit: Yes Status: Acute - Time Spent with Patient Total time spent is greater than 50% in coordination of care (as documented) at patient's floor/unit and/or counseling patient: Internal Medicine: Result - Labs CBC & Chem 7: 03/29/18 00:40 03/29/18 00:40 Labs: Short CBC 03/29/18 Range/Units 00:40 WBC 5.2 (4.3-11.1) K/mcL Hgb 12.2 (11.5-15.4) g/dL Hct 37.4 (35.3-44.9) % Plt Count 134 L (140-400) K/mcL Neutrophils # 2.8 (1.6-8.9) K/mcL BMP 03/29/18 00:40 Sodium 137 Potassium 4.2 Chloride 100 Carbon Dioxide 29 BUN 25 H Creatinine 1.39 H Glucose 104 Calcium 10.9 H - Attending Attestation I examined this patient and my medical decision-making was reviewed with the Resident Physician. I agree with the documented findings, disposition and treatment plan as described except to the extent set forth below. <Artem Okeefe - Last Filed: 03/29/18 14:24> (2) Diastolic CHF Qualifiers: Heart failure chronicity: acute on chronic Qualified Code(s): I50.33 - Acute on chronic diastolic (congestive) heart failure (4) CAD (coronary artery disease) Qualifiers: Coronary Disease-Associated Artery/Lesion type: [place] artery [place] vs. transplanted heart: [place] heart Associated angina: without angina Qualified Code(s): I25.10 - Atherosclerotic heart disease of [place] coronary artery without angina pectoris (5) Atrial fibrillation Qualifiers: Atrial fibrillation type: chronic Qualified Code(s): I48.2 - Chronic atrial fibrillation (6) Closed fracture of distal end of radius Qualifiers: Encounter type: initial encounter Fracture morphology: other intra-articular Laterality: right Qualified Code(s): S52.571A - Other intraarticular fracture of lower end of right radius, initial encounter for closed fracture <Beth Ruelas - Last Filed: 03/29/18 18:01> (1) Diastolic CHF Qualifiers: Heart failure chronicity: acute on chronic Qualified Code(s): I50.33 - Acute on chronic diastolic (congestive) heart failure (3) CAD (coronary artery disease) Qualifiers: Coronary Disease-Associated Artery/Lesion type: [place] artery [place] vs. transplanted heart: [place] heart Associated angina: without angina Qualified Code(s): I25.10 - Atherosclerotic heart disease of [place] coronary artery without angina pectoris (4) Atrial fibrillation Qualifiers: Atrial fibrillation type: chronic Qualified Code(s): I48.2 - Chronic atrial fibrillation (5) Closed fracture of distal end of radius Qualifiers: Encounter type: initial encounter Fracture morphology: other intra-articular Laterality: right Qualified Code(s): S52.571A - Other intraarticular fracture of lower end of right radius, initial encounter for closed fracture
[2018-03-29] MEDS ORDERED: metOLazone 2.5 MG TABLET PO PRN (14:51)
[2018-03-29] MEDS ORDERED: Furosemide 20 MG/2 ML VIAL IVP ONE (14:51)
[2018-03-29] MEDS: *HR* OxyCODONE/APAP 7.5/325 TABLET PO SCH ×2 (16:04→23:41)
[2018-03-29] MEDS ORDERED: *HR* Heparin 5,000 UNIT/ML VIAL SQ SCH (18:00)
[2018-03-29] MEDS: Gabapentin 400 MG CAPSULE PO SCH ×2 (19:49→20:41)
--- NOTE | 2018-03-29 21:26 | Event Note ---
Date of Encounter: 03/29/18 Time of Encounter: 21:18 Alerted by Cardio Venous Doppler that pt. positive for superficial varicose vein only and right lower extremity. Doppler unable to image right lower extremity thigh deep veins due to patient body habitus. All other veins in right leg appear negative. Pt. receiving SQ heparin for DVT prophylaxis Q12HR. SQ heparin changed to Q8HR. Monitor pt.
[2018-03-29] MEDS: *HR* Heparin 5,000 UNIT/ML VIAL SQ SCH (21:56)
[2018-03-30 02:39] LABS: Basophils % 0.4 %; Eosinophils # 0.2 K/mcL (0.0-0.6); Eosinophils % 2.8 %; Hematocrit 36.3 % (35.3-44.9); Hemoglobin 12.2 g/dL (11.5-15.4); Immature Granulocytes % 0.2 % (0-4); Lymphocytes # 1.2 K/mcL (0.6-4.6); Lymphocytes % 23.2 %; Mean Corpuscular HGB Conc 33.6 g/dL (31.6-35.5); Mean Corpuscular Hemoglobin 34.7 pg (28.0-33.3); Mean Corpuscular Volume 103.1 fL (83.0-100.0); Mean Platelet Volume 11.3 fL (9.4-12.4); Monocytes # 0.9 K/mcL (0.0-1.3); Monocytes % 16.3 %; Neutrophils # 3.1 K/mcL (1.6-8.9); Platelet Count 136 K/mcL (140-400); Red Blood Count 3.52 M/mcL (3.82-4.97); Red Cell Distribution Width 14.8 % (11.5-14.5); Segmented Neutrophils % 57.1 %
[2018-03-30 02:58] LABS: Calcium 10.8 mg/dL (8.6-10.3); Potassium 3.9 mEq/L (3.5-5.1)
[2018-03-30] MEDS: *HR* Heparin 5,000 UNIT/ML VIAL SQ SCH ×3 (05:36→21:59)
[2018-03-30] MEDS: *HR* OxyCODONE/APAP 7.5/325 TABLET PO SCH ×4 (05:36→21:59)
[2018-03-30] MEDS: Levothyroxine 25 MCG TABLET PO SCH (05:36)
[2018-03-30] MEDS ORDERED: Levothyroxine 25 MCG TABLET PO SCH (06:30)
[2018-03-30] MEDS ORDERED: metOLazone 2.5 MG TABLET PO SCH (09:00)
[2018-03-30] MEDS: DHA PO SCH (10:17)
[2018-03-30] MEDS: Cyanocobalamin (B-12) 1,000 MCG TABLET PO SCH (10:17)
[2018-03-30] MEDS: Furosemide 40 MG TABLET PO SCH (10:17)
[2018-03-30] MEDS: OMEGA PO SCH (10:17)
[2018-03-30] MEDS: Gabapentin 400 MG CAPSULE PO SCH ×3 (10:17→21:59)
[2018-03-30] MEDS: Aspirin Enteric Coated 325 MG Tablet PO SCH (10:17)
[2018-03-30] MEDS: EPA PO SCH (10:17)
[2018-03-30] MEDS: FISH OIL PO SCH (10:17)
[2018-03-30] MEDS: diazePAM 2 MG TABLET PO PRN ×2 (10:21→21:59)
--- NOTE | 2018-03-30 10:33 | Internal Med Progress Note ---
<Artem Okeefe - Last Filed: 03/30/18 16:55> Hospitalist Progress Note - Encounter Date of Encounter: 03/30/18 Time of Encounter: 10:23 - Subjective Interval History: Patient seen and examined this morning, no acute events overnight Patient was admitted for evaluation of syncope and fall, also for orthopedic evaluation of fracture Orthopedic consultation recommending conservative nonsurgical management Echocardiogram, orthostatic vitals, carotid Doppler pending Patient has no acute complaints today Denies chest pain, shortness of breath - Exam Vitals: Temp Pulse Resp BP Pulse Ox 97.9 F 56 16 125/71 94 03/30/18 07:23 03/30/18 07:23 03/30/18 07:23 03/30/18 07:23 03/30/18 07:23 Exam: Patient was in no acute distress, alert and oriented 3 Cranial nerves II through XII intact Heart in regular rate and rhythm, no murmur or gallop auscultated Lungs sounds were diffusely diminished without wheezes or rales auscultated Abdomen obese and soft and nontender with normal bowel sounds present Bilateral upper and lower extremities with sensation and motor intact and without focal deficits Bilateral lower extremities edematous without pitting, erythematous and tender to palpation but less so than yesterday Skin warm and dry - Assessment and Plan (1) Syncope and collapse Current Visit: Yes Status: Resolved Assessment and Plan: Patient presented with chief complaint of fall secondary to syncopal episode Family states she had multiple falls in November, and a few more in August prior, but none before that Differentials include stroke, arrhythmia, seizure, hypoxia, heart failure CT head was negative, patient has history of known atrial fibrillation that is rate controlled Patient has no known history of seizures and there was no post ictal state or seizure activity witnessed Patient did complain of dyspnea on exertion and edema Physical exam notable for edema and diminished lung sounds BNP normal, echocardiogram demonstrated mild diastoliic dysfunction, EF 60% PT/OT recommending ECF placement at discharge Cardiac workup largely negative. Plan Discussing ECF placement with social work Continuous cardiac monitoring and pulse oximetry (2) Diastolic CHF Current Visit: Yes Status: Suspected Assessment and Plan: Patient does have a history of recorded treatment for heart failure Last echocardiogram done in 2017 documents mild diastolic heart failure with ejection fraction of 55% Patient does complain of dyspnea on exertion and edema Physical exam demonstrates significant edema BNP normal Plan Plan as seen above (3) CKD (chronic kidney disease), stage III Current Visit: Yes Status: Chronic Assessment and Plan: History of chronic kidney disease stage III treated by nephrology Creatinine on admission is 1.4 which appears to be patient's baseline based on previous documentation We will renally dose medications and avoid nephrotoxins when possible Continue home medication of spironolactone and furosemide (4) CAD (coronary artery disease) Current Visit: Yes Status: Chronic Assessment and Plan: Patient with history of coronary artery disease She does have history of catheterization without percutaneous coronary intervention We will continue home medications of carvedilol and aspirin (5) Atrial fibrillation Current Visit: Yes Status: Chronic Assessment and Plan: History of atrial fibrillation Based on EKG and exam here it appears to be paroxysmal Rate controlled We will continue home medications of carvedilol and monitor (6) Closed fracture of distal end of radius Current Visit: Yes Status: Acute Assessment and Plan: Distal intra-articular comminuted fracture of radius found on x-ray at admission Volar splint was applied in the emergency department We will continue home medication of Percocet for pain control We will continue to monitor for vascular or neurologic compromise of the extremity Orthopedics consulted and recommending conservative non surgical management (7) Anxiety and depression Current Visit: Yes Status: Acute Assessment and Plan: Patient with history of depression and anxiety apparently as a result of past trauma Continue home citalopram and diazepam at lower dose DVT Prophylaxis: subcutaneous heparin 5000 units q8hr - Time Spent with Patient Total time spent is greater than 50% in coordination of care (as documented) at patient's floor/unit and/or counseling patient: Internal Medicine: Result - Labs CBC & Chem 7: 03/30/18 01:30 03/30/18 01:30 Labs: Short CBC 03/30/18 Range/Units 01:30 WBC 5.3 (4.3-11.1) K/mcL Hgb 12.2 (11.5-15.4) g/dL Hct 36.3 (35.3-44.9) % Plt Count 136 L (140-400) K/mcL Neutrophils # 3.1 (1.6-8.9) K/mcL BMP 03/30/18 01:30 Sodium 136 Potassium 3.9 Chloride 101 Carbon Dioxide 28 BUN 23 Creatinine 1.30 H Glucose 114 H Calcium 10.8 H - Impressions Impressions Echocardiogram 03/29/18 07:00 Impressions: LVEF 60%. Normal LV chamber size, wall thickness and function. Mild left ventricular diastolic dysfunction. Normal right ventricular structure and function. Mild pulmonary hypertension. No significant valvular dysfunction. Left Ventricular Wall Motion: Rest Echo Findings All wall segments showed normal motion. Findings: Study Quality * Technically sub-optimal due to poor echocardiographic windows. ECG Findings * Normal sinus rhythm. Left Ventricle * LVEF 60%. * Normal LV chamber size, wall thickness and function. * Atypical septal motion of unclear etiology. * Mild left ventricular diastolic dysfunction. Right Ventricle * Normal right ventricular structure and function. Left Atrium * Mildly dilated left atrium. Right Atrium * Mildly dilated right atrium. Aortic Valve * Aortic valve not well visualized. * No aortic regurgitation. * No aortic stenosis. Mitral Valve * Normal mitral valve structure and function. * No mitral stenosis. * No mitral regurgitation. Tricuspid Valve * Normal tricuspid valve structure and function. * Trace tricuspid regurgitation. * Mild pulmonary hypertension. Pulmonic Valve * Pulmonic valve not well visualized. * Normal pulmonic valve structure and function. Aorta * Normally sized aortic root. Pericardium * The pericardium appears normal. IVC * Normal IVC dimensions and inspiratory collapse. Pulmonary Artery * Normal visualized portions of the main pulmonary artery. Consult Discharge Plan - Plan Referrals: Rosalina Bonner, [employer] [Primary Care Provider] - <Nai Lopez - Last Filed: 03/30/18 17:16> Hospitalist Progress Note - Encounter Date of Encounter: 03/30/18 - Exam Vitals: Temp Pulse Resp BP Pulse Ox 97.5 F L 57 18 159/92 93 03/30/18 16:50 03/30/18 16:50 03/30/18 16:50 03/30/18 16:50 03/30/18 16:50 - Assessment and Plan (1) Diastolic CHF Current Visit: Yes Status: Suspected (2) CKD (chronic kidney disease), stage III Current Visit: Yes Status: Chronic (3) CAD (coronary artery disease) Current Visit: Yes Status: Chronic (4) Atrial fibrillation Current Visit: Yes Status: Chronic (5) Closed fracture of distal end of radius Current Visit: Yes Status: Acute (6) Syncope and collapse Current Visit: Yes Status: Resolved (7) Anxiety and depression Current Visit: Yes Status: Acute - Time Spent with Patient Total time spent is greater than 50% in coordination of care (as documented) at patient's floor/unit and/or counseling patient: Internal Medicine: Result - Labs CBC & Chem 7: 03/30/18 01:30 03/30/18 01:30 Labs: Short CBC 03/30/18 Range/Units 01:30 WBC 5.3 (4.3-11.1) K/mcL Hgb 12.2 (11.5-15.4) g/dL Hct 36.3 (35.3-44.9) % Plt Count 136 L (140-400) K/mcL Neutrophils # 3.1 (1.6-8.9) K/mcL BMP 03/30/18 01:30 Sodium 136 Potassium 3.9 Chloride 101 Carbon Dioxide 28 BUN 23 Creatinine 1.30 H Glucose 114 H Calcium 10.8 H - Impressions Impressions Echocardiogram 03/29/18 07:00 Impressions: LVEF 60%. Normal LV chamber size, wall thickness and function. Mild left ventricular diastolic dysfunction. Normal right ventricular structure and function. Mild pulmonary hypertension. No significant valvular dysfunction. Left Ventricular Wall Motion: Rest Echo Findings All wall segments showed normal motion. Findings: Study Quality * Technically sub-optimal due to poor echocardiographic windows. ECG Findings * Normal sinus rhythm. Left Ventricle * LVEF 60%. * Normal LV chamber size, wall thickness and function. * Atypical septal motion of unclear etiology. * Mild left ventricular diastolic dysfunction. Right Ventricle * Normal right ventricular structure and function. Left Atrium * Mildly dilated left atrium. Right Atrium * Mildly dilated right atrium. Aortic Valve * Aortic valve not well visualized. * No aortic regurgitation. * No aortic stenosis. Mitral Valve * Normal mitral valve structure and function. * No mitral stenosis. * No mitral regurgitation. Tricuspid Valve * Normal tricuspid valve structure and function. * Trace tricuspid regurgitation. * Mild pulmonary hypertension. Pulmonic Valve * Pulmonic valve not well visualized. * Normal pulmonic valve structure and function. Aorta * Normally sized aortic root. Pericardium * The pericardium appears normal. IVC * Normal IVC dimensions and inspiratory collapse. Pulmonary Artery * Normal visualized portions of the main pulmonary artery. - Attending Attestation I examined this patient and my medical decision-making was reviewed with the Resident Physician Dr. Okeefe. I agree with the documented findings, disposition and treatment plan as described except to the extent set forth below. Ms. Carter is a 82-year-old female with known past medical history of CKD stage III, hypertension, hyperlipidemia, Gerd and diastolic CHF present at the ER with fall and syncopal episode. Pt happened to have Rt fore arm distal radial fx. She was evaluated by [facility] , who recommend non operative conservative management with splint. PT / OT evaluated the pt who recommend ECF placement. Patient definitely need to stay in the hospital more than 2 to 3 nights due to her complex medical problems as well as multiple comorbidities. So will switch her to full admission today. I did review Dr. Ruelas H & P including HPI, PMH, PS H, SH, FH and ROS, no changes noticed. Gen: A, A< O x 3 Chest: Diminished BS b/l Heart: S1S2+ Ext: Splint placed over Rt fore arm <Artem Okeefe - Last Filed: 03/30/18 16:55> (2) Diastolic CHF Qualifiers: Heart failure chronicity: acute on chronic Qualified Code(s): I50.33 - Acute on chronic diastolic (congestive) heart failure (4) CAD (coronary artery disease) Qualifiers: Coronary Disease-Associated Artery/Lesion type: [place] artery [place] vs. transplanted heart: [place] heart Associated angina: without angina Qualified Code(s): I25.10 - Atherosclerotic heart disease of [place] coronary artery without angina pectoris (5) Atrial fibrillation Qualifiers: Atrial fibrillation type: chronic Qualified Code(s): I48.2 - Chronic atrial fibrillation (6) Closed fracture of distal end of radius Qualifiers: Encounter type: initial encounter Fracture morphology: other intra-articular Laterality: right Qualified Code(s): S52.571A - Other intraarticular fracture of lower end of right radius, initial encounter for closed fracture <Nai Lopez - Last Filed: 03/30/18 17:16> (1) Diastolic CHF Qualifiers: Heart failure chronicity: acute on chronic Qualified Code(s): I50.33 - Acute on chronic diastolic (congestive) heart failure (3) CAD (coronary artery disease) Qualifiers: Coronary Disease-Associated Artery/Lesion type: [place] artery [place] vs. transplanted heart: [place] heart Associated angina: without angina Qualified Code(s): I25.10 - Atherosclerotic heart disease of [place] coronary artery without angina pectoris (4) Atrial fibrillation Qualifiers: Atrial fibrillation type: chronic Qualified Code(s): I48.2 - Chronic atrial fibrillation (5) Closed fracture of distal end of radius Qualifiers: Encounter type: initial encounter Fracture morphology: other intra-articular Laterality: right Qualified Code(s): S52.571A - Other intraarticular fracture of lower end of right radius, initial encounter for closed fracture
[2018-03-30] MEDS: Fluticasone Propionate Nasal 50 MCG/SPRAY BOTTLE NS SCH (13:01)
--- NOTE | 2018-03-30 17:41 | Electrocardiograph Report ---
[place] [id number] Test Date: 2018-03-28 Pat Name: Narcisa Carter Department: [id number] Room: [facility] Gender: Dining Room Attendant [employer]: : 1935 Requested By: Shayla Medina Order Number: [id number] Reading MD: Nikki Linder Measurements Intervals [place] Rate: 47 P: 56 [place]: 233 QRS: -8 QRSD: 104 T: 37 QT: 436 QTc: 386 Interpretive Statements Sinus rhythm Prolonged [place] interval Low voltage, precordial leads Electronically Signed On 03-30-2018 17:39:31 EDT by Nikki Linder
[2018-03-31 00:52] LABS: Basophils % 0.5 %; Eosinophils # 0.2 K/mcL (0.0-0.6); Eosinophils % 4.1 %; Hemoglobin 12.9 g/dL (11.5-15.4); Immature Granulocytes % 0.9 % (0-4); Lymphocytes # 1.7 K/mcL (0.6-4.6); Lymphocytes % 30.8 %; Mean Corpuscular HGB Conc 33.9 g/dL (31.6-35.5); Mean Corpuscular Hemoglobin 34.8 pg (28.0-33.3); Mean Corpuscular Volume 102.4 fL (83.0-100.0); Mean Platelet Volume 10.7 fL (9.4-12.4); Monocytes % 17.6 %; Neutrophils # 2.6 K/mcL (1.6-8.9); Nucleated Red Blood Cells 0.5 /100 WBC (0); Platelet Count 128 K/mcL (140-400); Red Blood Count 3.71 M/mcL (3.82-4.97); Red Cell Distribution Width 14.7 % (11.5-14.5); Segmented Neutrophils % 46.1 %
[2018-03-31 05:23] LABS: Calcium 10.7 mg/dL (8.6-10.3); Potassium 4.5 mEq/L (3.5-5.1)
[2018-03-31] MEDS: *HR* Heparin 5,000 UNIT/ML VIAL SQ SCH ×3 (06:12→20:52)
[2018-03-31] MEDS: Levothyroxine 25 MCG TABLET PO SCH (06:53)
[2018-03-31] MEDS: Cyanocobalamin (B-12) 1,000 MCG TABLET PO SCH (08:18)
[2018-03-31] MEDS: Furosemide 40 MG TABLET PO SCH (08:18)
[2018-03-31] MEDS: Gabapentin 400 MG CAPSULE PO SCH ×3 (08:18→20:50)
[2018-03-31] MEDS: Aspirin Enteric Coated 325 MG Tablet PO SCH (08:18)
[2018-03-31] MEDS: *HR* OxyCODONE/APAP 7.5/325 TABLET PO SCH ×3 (08:18→18:44)
[2018-03-31] MEDS: FISH OIL PO SCH (08:21)
[2018-03-31] MEDS: OMEGA PO SCH (08:21)
[2018-03-31] MEDS: Fluticasone Propionate Nasal 50 MCG/SPRAY BOTTLE NS SCH (08:21)
[2018-03-31] MEDS: DHA PO SCH (08:21)
[2018-03-31] MEDS: EPA PO SCH (08:21)
--- NOTE | 2018-03-31 15:30 | Internal Med Progress Note ---
Addendum entered and electronically signed by Artem Okeefe 03/31/18 15:44 : Diastolic heart failure is chronic and not in acute exacerbation Original Note: <rAtem Okeefe - Last Filed: 03/31/18 15:28> Hospitalist Progress Note - Encounter Date of Encounter: 03/31/18 Time of Encounter: 09:00 - Subjective Interval History: Patient seen and examined this morning, no acute events overnight Patient was admitted for evaluation of syncope and fall, also for orthopedic evaluation of fracture Orthopedic consultation recommending conservative nonsurgical management Echocardiogram mild diastolic dysfunction, EF 60%, orthostatics normal Patient has no acute complaints today Denies chest pain, shortness of breath Due to multiple comorbidities patient will require extended inpatient hospital stay - Exam Vitals: Temp Pulse Resp BP Pulse Ox 97.8 F 67 16 126/68 96 03/31/18 09:45 03/31/18 09:45 03/31/18 09:45 03/31/18 09:45 03/31/18 09:45 Exam: Patient was in no acute distress, alert and oriented 3 Cranial nerves II through XII intact Heart in regular rate and rhythm, no murmur or gallop auscultated Lungs sounds were diffusely diminished without wheezes or rales auscultated Abdomen obese and soft and nontender with normal bowel sounds present Bilateral upper and lower extremities with sensation and motor intact and without focal deficits Bilateral lower extremities edematous without pitting, erythematous but non tender Skin warm and dry - Assessment and Plan (1) Syncope and collapse Current Visit: Yes Status: Resolved Assessment and Plan: Patient presented with chief complaint of fall secondary to syncopal episode Family states she had multiple falls in November, and a few more in August prior, but none before that Differentials include stroke, arrhythmia, seizure, hypoxia, heart failure CT head was negative, patient has history of known atrial fibrillation that is rate controlled Patient has no known history of seizures and there was no post ictal state or seizure activity witnessed Patient did complain of dyspnea on exertion and edema Physical exam notable for edema and diminished lung sounds BNP normal, echocardiogram demonstrated mild diastoliic dysfunction, EF 60% PT/OT recommending ECF placement at discharge Cardiac workup largely negative. Plan Discussing ECF placement with social work Continuous cardiac monitoring and pulse oximetry (2) Diastolic CHF Current Visit: Yes Status: Suspected Assessment and Plan: Patient does have a history of recorded treatment for heart failure Last echocardiogram done in 2017 documents mild diastolic heart failure with ejection fraction of 55% Patient does complain of dyspnea on exertion and edema Physical exam demonstrates significant edema BNP normal Plan Plan as seen above (3) CKD (chronic kidney disease), stage III Current Visit: Yes Status: Chronic Assessment and Plan: History of chronic kidney disease stage III treated by nephrology Creatinine on admission is 1.4 which appears to be patient's baseline based on previous documentation We will renally dose medications and avoid nephrotoxins when possible Continue home medication of spironolactone and furosemide (4) CAD (coronary artery disease) Current Visit: Yes Status: Chronic Assessment and Plan: Patient with history of coronary artery disease She does have history of catheterization without percutaneous coronary intervention We will continue home medications of carvedilol and aspirin (5) Atrial fibrillation Current Visit: Yes Status: Chronic Assessment and Plan: History of atrial fibrillation Based on EKG and exam here it appears to be paroxysmal Rate controlled We will continue home medications of carvedilol and monitor (6) Closed fracture of distal end of radius Current Visit: Yes Status: Acute Assessment and Plan: Distal intra-articular comminuted fracture of radius found on x-ray at admission Volar splint was applied in the emergency department We will continue home medication of Percocet and acetaminophen prn for pain control We will continue to monitor for vascular or neurologic compromise of the extremity Orthopedics consulted and recommending conservative non surgical management (7) Anxiety and depression Current Visit: Yes Status: Acute Assessment and Plan: Patient with history of depression and anxiety apparently as a result of past trauma Continue home citalopram and diazepam at lower dose DVT Prophylaxis: subcutaneous heparin 5000 units q8hr - Time Spent with Patient Total time spent is greater than 50% in coordination of care (as documented) at patient's floor/unit and/or counseling patient: Internal Medicine: Result - Labs CBC & Chem 7: 03/31/18 00:37 03/31/18 00:37 Labs: Short CBC 03/31/18 Range/Units 00:37 WBC 5.6 (4.3-11.1) K/mcL Hgb 12.9 (11.5-15.4) g/dL Hct 38.0 (35.3-44.9) % Plt Count 128 L (140-400) K/mcL Neutrophils # 2.6 (1.6-8.9) K/mcL [facility] 03/31/18 00:37 Sodium 139 Potassium 4.5 Chloride 102 Carbon Dioxide 23 BUN 25 H Creatinine 1.36 H Glucose 114 H Calcium 10.7 H Consult Discharge Plan - Plan Referrals: Rosalina Bonner, BUSINESS SERVICES SALES REPRESENTATIVE [Primary Care Provider] - <Nai Lopez - Last Filed: 03/31/18 16:54> Hospitalist Progress Note - Encounter Date of Encounter: 03/31/18 - Exam Vitals: Temp Pulse Resp BP Pulse Ox 97.8 F 67 16 126/68 96 03/31/18 09:45 03/31/18 09:45 03/31/18 09:45 03/31/18 09:45 03/31/18 09:45 - Assessment and Plan (1) Diastolic CHF Current Visit: Yes Status: Suspected (2) CKD (chronic kidney disease), stage III Current Visit: Yes Status: Chronic (3) CAD (coronary artery disease) Current Visit: Yes Status: Chronic (4) Atrial fibrillation Current Visit: Yes Status: Chronic (5) Closed fracture of distal end of radius Current Visit: Yes Status: Acute (6) Syncope and collapse Current Visit: Yes Status: Resolved (7) Anxiety and depression Current Visit: Yes Status: Acute - Time Spent with Patient Total time spent is greater than 50% in coordination of care (as documented) at patient's floor/unit and/or counseling patient: Internal Medicine: Result - Labs CBC & Chem 7: 03/31/18 00:37 03/31/18 00:37 Labs: Short CBC 03/31/18 Range/Units 00:37 WBC 5.6 (4.3-11.1) K/mcL Hgb 12.9 (11.5-15.4) g/dL Hct 38.0 (35.3-44.9) % Plt Count 128 L (140-400) K/mcL Neutrophils # 2.6 (1.6-8.9) K/mcL [facility] 03/31/18 00:37 Sodium 139 Potassium 4.5 Chloride 102 Carbon Dioxide 23 BUN 25 H Creatinine 1.36 H Glucose 114 H Calcium 10.7 H - Attending Attestation I examined this patient and my medical decision-making was reviewed with the Resident Physician Dr. Okeefe. I agree with the documented findings, disposition and treatment plan as described except to the extent set forth below. Ms. Carter is a 82-year-old female with known past medical history of CKD stage III, hypertension, hyperlipidemia, Gerd and diastolic CHF present at the ER with fall and syncopal episode. Pt happened to have Rt fore arm distal radial fx. She was evaluated by [facility] , who recommend non operative conservative management with splint. PT / OT evaluated the pt who recommend ECF placement. No events over night. Gen: A, A< O x 3 Chest: Diminished BS b/l Heart: S1S2+ Ext: Splint placed over Rt fore arm 1. Syncope mostly ortho static so far negative work up 2. Acute Rt distal radius fx cont splint PT / OT as per Ortho 3. Rt hip pain will obtain X ray of Rt hip 4. Chronic diastolic CHF not in exacerbation <Artem Okeefe - Last Filed: 03/31/18 15:28> (2) Diastolic CHF Qualifiers: Heart failure chronicity: acute on chronic Qualified Code(s): I50.33 - Acute on chronic diastolic (congestive) heart failure (4) CAD (coronary artery disease) Qualifiers: Coronary Disease-Associated Artery/Lesion type: [place] artery [place] vs. transplanted heart: [place] heart Associated angina: without angina Qualified Code(s): I25.10 - Atherosclerotic heart disease of [place] coronary artery without angina pectoris (5) Atrial fibrillation Qualifiers: Atrial fibrillation type: chronic Qualified Code(s): I48.2 - Chronic atrial fibrillation (6) Closed fracture of distal end of radius Qualifiers: Encounter type: initial encounter Fracture morphology: other intra-articular Laterality: right Qualified Code(s): S52.571A - Other intraarticular fracture of lower end of right radius, initial encounter for closed fracture <Nai Lopez - Last Filed: 03/31/18 16:54> (1) Diastolic CHF Qualifiers: Heart failure chronicity: acute on chronic Qualified Code(s): I50.33 - Acute on chronic diastolic (congestive) heart failure (3) CAD (coronary artery disease) Qualifiers: Coronary Disease-Associated Artery/Lesion type: [place] artery [place] vs. transplanted heart: [place] heart Associated angina: without angina Qualified Code(s): I25.10 - Atherosclerotic heart disease of [place] coronary artery without angina pectoris (4) Atrial fibrillation Qualifiers: Atrial fibrillation type: chronic Qualified Code(s): I48.2 - Chronic atrial fibrillation (5) Closed fracture of distal end of radius Qualifiers: Encounter type: initial encounter Fracture morphology: other intra-articular Laterality: right Qualified Code(s): S52.571A - Other intraarticular fracture of lower end of right radius, initial encounter for closed fracture
[2018-04-01] MEDS: *HR* OxyCODONE/APAP 7.5/325 TABLET PO SCH ×5 (00:01→22:49)
[2018-04-01] MEDS: diazePAM 2 MG TABLET PO PRN ×2 (01:07→22:49)
[2018-04-01 01:21] LABS: Basophils % 0.6 %; Eosinophils # 0.2 K/mcL (0.0-0.6); Eosinophils % 3.3 %; Hemoglobin 11.9 g/dL (11.5-15.4); Immature Granulocytes % 0.2 % (0-4); Lymphocytes # 1.4 K/mcL (0.6-4.6); Lymphocytes % 26.8 %; Mean Corpuscular HGB Conc 33.1 g/dL (31.6-35.5); Mean Corpuscular Hemoglobin 34.2 pg (28.0-33.3); Mean Corpuscular Volume 103.4 fL (83.0-100.0); Mean Platelet Volume 11.3 fL (9.4-12.4); Monocytes % 19.5 %; Neutrophils # 2.6 K/mcL (1.6-8.9); Platelet Count 115 K/mcL (140-400); Red Blood Count 3.48 M/mcL (3.82-4.97); Red Cell Distribution Width 14.7 % (11.5-14.5); Segmented Neutrophils % 49.6 %
[2018-04-01 01:34] LABS: Calcium 10.4 mg/dL (8.6-10.3); Potassium 4.4 mEq/L (3.5-5.1)
[2018-04-01 01:57] LABS: Hypochromasia Present (Not Present); Platelet Estimate Slight Decrease (Normal); Reactive Lymphocytes Present (Not Present)
[2018-04-01] MEDS: Levothyroxine 25 MCG TABLET PO SCH (06:22)
[2018-04-01] MEDS: *HR* Heparin 5,000 UNIT/ML VIAL SQ SCH ×3 (06:22→20:25)
[2018-04-01] MEDS: Furosemide 40 MG TABLET PO SCH (08:05)
[2018-04-01] MEDS: Gabapentin 400 MG CAPSULE PO SCH ×3 (08:05→20:25)
[2018-04-01] MEDS: Fluticasone Propionate Nasal 50 MCG/SPRAY BOTTLE NS SCH (08:06)
[2018-04-01] MEDS: Aspirin Enteric Coated 325 MG Tablet PO SCH (08:06)
[2018-04-01] MEDS: Cyanocobalamin (B-12) 1,000 MCG TABLET PO SCH (08:06)
--- NOTE | 2018-04-01 11:23 | Internal Med Progress Note ---
<Artem Okeefe - Last Filed: 04/01/18 16:46> Hospitalist Progress Note - Encounter Date of Encounter: 04/01/18 Time of Encounter: 11:20 - Subjective Interval History: Patient seen and examined this morning, no acute events overnight Patient was admitted for evaluation of syncope and fall, also for orthopedic evaluation of fracture Orthopedic consultation recommending conservative nonsurgical management Echocardiogram mild diastolic dysfunction, EF 60%, orthostatics normal Patient has no acute complaints today Denies chest pain, shortness of breath Due to multiple comorbidities patient will require extended inpatient hospital stay ECF set up for tomorrow, will continue to communicate with social work/case management - Exam Vitals: Temp Pulse Resp BP Pulse Ox 97.9 F 68 16 104/68 95 04/01/18 06:33 04/01/18 06:33 04/01/18 06:33 04/01/18 06:33 04/01/18 06:33 Exam: Patient was in no acute distress, alert and oriented 3 Cranial nerves II through XII intact Heart in regular rate and rhythm, no murmur or gallop auscultated Lungs sounds were diffusely diminished without wheezes or rales auscultated Abdomen obese and soft and nontender with normal bowel sounds present Right upper extremity in sugar tong splint past fingers, sensation intact in fingers without numbness/tingling Bilateral lower extremities edematous without pitting, erythematous but non tender Skin warm and dry - Assessment and Plan (1) Syncope and collapse Current Visit: Yes Status: Resolved Assessment and Plan: Patient presented with chief complaint of fall secondary to syncopal episode Family states she had multiple falls in November, and a few more in August prior, but none before that Differentials include stroke, arrhythmia, seizure, hypoxia, heart failure CT head was negative, patient has history of known atrial fibrillation that is rate controlled Patient has no known history of seizures and there was no post ictal state or seizure activity witnessed Patient did complain of dyspnea on exertion and edema Physical exam notable for edema and diminished lung sounds BNP normal, echocardiogram demonstrated mild diastoliic dysfunction, EF 60% PT/OT recommending ECF placement at discharge Cardiac workup largely negative. Syncope possibly vasovagal, diagnosis of exclusion of other etiologies Plan Discussing ECF placement with social work Continuous cardiac monitoring and pulse oximetry (2) Diastolic CHF Current Visit: Yes Status: Chronic Assessment and Plan: Patient does have a history of recorded treatment for heart failure, diastolic with preserved ejection fraction Last echocardiogram done in 2017 documents mild diastolic heart failure with ejection fraction of 55% Patient does complain of dyspnea on exertion and edema Physical exam demonstrates significant edema BNP normal Plan Plan as seen above (3) CKD (chronic kidney disease), stage III Current Visit: Yes Status: Chronic Assessment and Plan: History of chronic kidney disease stage III treated by nephrology Creatinine on admission is 1.4 which appears to be patient's baseline based on previous documentation We will renally dose medications and avoid nephrotoxins when possible Continue home medication of spironolactone and furosemide Creatinine and urine production remain stable (4) CAD (coronary artery disease) Current Visit: Yes Status: Chronic Assessment and Plan: Patient with history of coronary artery disease She does have history of catheterization without percutaneous coronary intervention We will continue home medications of carvedilol and aspirin She continues to deny chest pain or shortness of breath (5) Atrial fibrillation Current Visit: Yes Status: Chronic Assessment and Plan: History of atrial fibrillation Based on EKG and exam here it appears to be paroxysmal Rate controlled We will continue home medications of carvedilol and monitor Rate has remained stable (6) Closed fracture of distal end of radius Current Visit: Yes Status: Acute Assessment and Plan: Distal intra-articular comminuted fracture of radius found on x-ray at admission Volar splint was applied in the emergency department We will continue home medication of Percocet and acetaminophen prn for pain control We will continue to monitor for vascular or neurologic compromise of the extremity Orthopedics consulted and recommending conservative non surgical management Splint was replaced 2 days ago but has slipped down the arm Nurse to reach out to orhtopedics to see if splint can be replaced (7) Anxiety and depression Current Visit: Yes Status: Chronic Assessment and Plan: Patient with history of depression and anxiety apparently as a result of past trauma Continue home citalopram and diazepam at lower dose DVT Prophylaxis: subcutaneous heparin 5000 units q8hr - Time Spent with Patient Total time spent is greater than 50% in coordination of care (as documented) at patient's floor/unit and/or counseling patient: Internal Medicine: Result - Labs CBC & Chem 7: 04/01/18 00:54 04/01/18 00:54 Labs: Short CBC 04/01/18 Range/Units 00:54 WBC 5.2 (4.3-11.1) K/mcL Hgb 11.9 (11.5-15.4) g/dL Hct 36.0 (35.3-44.9) % Plt Count 115 L (140-400) K/mcL Neutrophils # 2.6 (1.6-8.9) K/mcL BMP 04/01/18 00:54 Sodium 137 Potassium 4.4 Chloride 101 Carbon Dioxide 29 BUN 29 H Creatinine 1.29 H Glucose 99 Calcium 10.4 H - Impressions Impressions Hip X-Ray 03/31/18 16:41 IMPRESSION: No evidence for fracture. D/ / Jules Easley MD / Jules Easley MD Interpreting Provider: Jules Easley MD Consult Discharge Plan - Plan Referrals: Rosalina Bonner SNUFF CONTAINER INSPECTOR [Primary Care Provider] - <Nai Lopez - Last Filed: 04/01/18 16:58> Hospitalist Progress Note - Encounter Date of Encounter: 04/01/18 - Exam Vitals: Temp Pulse Resp BP Pulse Ox 97.9 F 74 18 116/73 97 04/01/18 13:11 04/01/18 09:55 04/01/18 13:11 04/01/18 13:11 04/01/18 13:11 - Assessment and Plan (1) Diastolic CHF Current Visit: Yes Status: Chronic (2) CKD (chronic kidney disease), stage III Current Visit: Yes Status: Chronic (3) CAD (coronary artery disease) Current Visit: Yes Status: Chronic (4) Atrial fibrillation Current Visit: Yes Status: Chronic (5) Closed fracture of distal end of radius Current Visit: Yes Status: Acute (6) Syncope and collapse Current Visit: Yes Status: Resolved (7) Anxiety and depression Current Visit: Yes Status: Chronic - Time Spent with Patient Total time spent is greater than 50% in coordination of care (as documented) at patient's floor/unit and/or counseling patient: Internal Medicine: Result - Labs CBC & Chem 7: 04/01/18 00:54 04/01/18 00:54 Labs: Short CBC 04/01/18 Range/Units 00:54 WBC 5.2 (4.3-11.1) K/mcL Hgb 11.9 (11.5-15.4) g/dL Hct 36.0 (35.3-44.9) % Plt Count 115 L (140-400) K/mcL Neutrophils # 2.6 (1.6-8.9) K/mcL BMP 04/01/18 00:54 Sodium 137 Potassium 4.4 Chloride 101 Carbon Dioxide 29 BUN 29 H Creatinine 1.29 H Glucose 99 Calcium 10.4 H - Impressions Impressions Hip X-Ray 03/31/18 16:41 IMPRESSION: No evidence for fracture. D/ / Jules Easley MD / Jules Easley MD Interpreting Provider: Jules Easley MD - Attending Attestation I examined this patient and my medical decision-making was reviewed with the Resident Physician Dr. Okeefe. I agree with the documented findings, disposition and treatment plan as described except to the extent set forth below. Ms. Carter is a 82-year-old female with known past medical history of CKD stage III, hypertension, hyperlipidemia, Gerd and diastolic CHF present at the ER with fall and syncopal episode. Pt happened to have Rt fore arm distal radial fx. She was evaluated by [facility] , who recommend non operative conservative management with splint. PT / OT evaluated the pt who recommend ECF placement. No events over night. Gen: A, A< O x 3 Chest: Diminished BS b/l Heart: S1S2+ Ext: Splint placed over Rt fore arm 1. Syncope mostly ortho static so far negative work up 2. Acute Rt distal radius fx cont splint PT / OT as per Ortho 3. Rt hip pain Reviewed X ray of Rt hip - no fracture noticed 4. Chronic diastolic CHF not in exacerbation <OkeefeArtem Pelaez - Last Filed: 04/01/18 16:46> (2) Diastolic CHF Qualifiers: Heart failure chronicity: chronic Qualified Code(s): I50.32 - Chronic diastolic (congestive) heart failure (4) CAD (coronary artery disease) Qualifiers: Coronary Disease-Associated Artery/Lesion type: [place] artery [place] vs. transplanted heart: [place] heart Associated angina: without angina Qualified Code(s): I25.10 - Atherosclerotic heart disease of [place] coronary artery without angina pectoris (5) Atrial fibrillation Qualifiers: Atrial fibrillation type: chronic Qualified Code(s): I48.2 - Chronic atrial fibrillation (6) Closed fracture of distal end of radius Qualifiers: Encounter type: initial encounter Fracture morphology: other intra-articular Laterality: right Qualified Code(s): S52.571A - Other intraarticular fracture of lower end of right radius, initial encounter for closed fracture <Nai Lopez - Last Filed: 04/01/18 16:58> (1) Diastolic CHF Qualifiers: Heart failure chronicity: chronic Qualified Code(s): I50.32 - Chronic diastolic (congestive) heart failure (3) CAD (coronary artery disease) Qualifiers: Coronary Disease-Associated Artery/Lesion type: [place] artery [place] vs. transplanted heart: [place] heart Associated angina: without angina Qualified Code(s): I25.10 - Atherosclerotic heart disease of [place] coronary artery without angina pectoris (4) Atrial fibrillation Qualifiers: Atrial fibrillation type: chronic Qualified Code(s): I48.2 - Chronic atrial fibrillation (5) Closed fracture of distal end of radius Qualifiers: Encounter type: initial encounter Fracture morphology: other intra-articular Laterality: right Qualified Code(s): S52.571A - Other intraarticular fracture of lower end of right radius, initial encounter for closed fracture
[2018-04-01] MEDS: Cefdinir 300 MG CAPSULE PO SCH (20:25)
[2018-04-02 01:51] LABS: Hemoglobin 12.1 g/dL (11.5-15.4); Mean Corpuscular HGB Conc 33.6 g/dL (31.6-35.5); Mean Corpuscular Hemoglobin 34.7 pg (28.0-33.3); Mean Corpuscular Volume 103.2 fL (83.0-100.0); Mean Platelet Volume 10.6 fL (9.4-12.4); Platelet Count 140 K/mcL (140-400); Red Blood Count 3.49 M/mcL (3.82-4.97); Red Cell Distribution Width 14.7 % (11.5-14.5); Segmented Neutrophils % 52.2 %
[2018-04-02 01:52] LABS: Basophils % 0.6 %; Eosinophils # 0.2 K/mcL (0.0-0.6); Eosinophils % 4.3 %; Immature Granulocytes % 0.4 % (0-4); Lymphocytes # 1.3 K/mcL (0.6-4.6); Lymphocytes % 26.4 %; Monocytes # 0.8 K/mcL (0.0-1.3); Monocytes % 16.1 %; Neutrophils # 2.6 K/mcL (1.6-8.9)
[2018-04-02] MEDS: *HR* OxyCODONE/APAP 7.5/325 TABLET PO SCH ×2 (06:29→12:11)
[2018-04-02] MEDS: Levothyroxine 25 MCG TABLET PO SCH (06:29)
[2018-04-02] MEDS: *HR* Heparin 5,000 UNIT/ML VIAL SQ SCH ×2 (06:30→15:52)
[2018-04-02 07:31] LABS: Calcium 10.5 mg/dL (8.6-10.3); Potassium 4.5 mEq/L (3.5-5.1)
[2018-04-02] MEDS: Furosemide 40 MG TABLET PO SCH (08:40)
[2018-04-02] MEDS: Gabapentin 400 MG CAPSULE PO SCH ×2 (08:40→15:48)
[2018-04-02] MEDS: Aspirin Enteric Coated 325 MG Tablet PO SCH (08:40)
[2018-04-02] MEDS: Cefdinir 300 MG CAPSULE PO SCH (08:41)
[2018-04-02] MEDS: Cyanocobalamin (B-12) 1,000 MCG TABLET PO SCH (08:41)
[2018-04-02] MEDS: Fluticasone Propionate Nasal 50 MCG/SPRAY BOTTLE NS SCH (08:53)
--- NOTE | 2018-04-02 09:52 | Discharge Summary ---
<Artem Okeefe Latanya - Last Filed: 04/02/18 13:46> - NOTES TO OUTPATIENT PROVIDER Notes to Outpatient Provider: Patient was admitted for syncope and fall resulting in right distal radius intra-articular comminuted fracture. Orthopedics recommended splint without surgical intervention. Cardiovascular, neurologic, orthostatic workup for syncope was noncontributory, likely diagnosis of exclusion -vasovagal. PT/OT consult indicated necessity of inpatient rehabilitation placement at discharge. Date of Encounter: 04/02/18 Time of Encounter: 09:49 - Discharge Diagnosis (1) Syncope and collapse Priority: Primary Status: Resolved Assessment and Plan: Patient presented with chief complaint of fall secondary to syncopal episode Family states she had multiple falls in November, and a few more in August prior, but none before that Differentials include stroke, arrhythmia, seizure, hypoxia, heart failure CT head was negative, patient has history of known atrial fibrillation that is rate controlled Patient has no known history of seizures and there was no post ictal state or seizure activity witnessed Patient did complain of dyspnea on exertion and edema Physical exam notable for edema and diminished lung sounds BNP normal, echocardiogram demonstrated mild diastoliic dysfunction, EF 60% PT/OT recommending ECF placement at discharge Cardiac workup largely negative. Syncope possibly vasovagal, diagnosis of exclusion of other etiologies Plan PT/OT consult recommended inpatient rehabilitation placement at discharge for further prevention of falls Continuous cardiac monitoring and pulse oximetry (2) Diastolic CHF Priority: Secondary Status: Chronic Assessment and Plan: Patient does have a history of recorded treatment for heart failure, diastolic with preserved ejection fraction Last echocardiogram done in 2017 documents mild diastolic heart failure with ejection fraction of 55% Patient does complain of dyspnea on exertion and edema Physical exam demonstrates significant edema BNP normal Plan Plan as seen above Qualifiers: Heart failure chronicity: chronic Qualified Code(s): I50.32 - Chronic diastolic (congestive) heart failure (3) CKD (chronic kidney disease), stage III Priority: Secondary Status: Chronic Assessment and Plan: History of chronic kidney disease stage III treated by nephrology Creatinine on admission is 1.4 which appears to be patient's baseline based on previous documentation We will renally dose medications and avoid nephrotoxins when possible Continue home medication of spironolactone and furosemide Creatinine and urine production remain stable (4) CAD (coronary artery disease) Priority: Secondary Status: Chronic Assessment and Plan: Patient with history of coronary artery disease She does have history of catheterization without percutaneous coronary intervention We will continue home medications of carvedilol and aspirin She continues to deny chest pain or shortness of breath Qualifiers: Coronary Disease-Associated Artery/Lesion type: [place] artery [place] vs. transplanted heart: [place] heart Associated angina: without angina Qualified Code(s): I25.10 - Atherosclerotic heart disease of [place] coronary artery without angina pectoris (5) Atrial fibrillation Priority: Secondary Status: Chronic Assessment and Plan: History of atrial fibrillation Based on EKG and exam here it appears to be paroxysmal Rate controlled We will continue home medications of carvedilol and monitor Rate has remained stable Qualifiers: Atrial fibrillation type: chronic Qualified Code(s): I48.2 - Chronic atrial fibrillation (6) Closed fracture of distal end of radius Priority: Secondary Status: Acute Assessment and Plan: Distal intra-articular comminuted fracture of radius found on x-ray at admission Volar splint was applied in the emergency department We will continue home medication of Percocet and acetaminophen prn for pain control We will continue to monitor for vascular or neurologic compromise of the extremity Orthopedics consulted and recommending conservative non surgical management Qualifiers: Encounter type: initial encounter Fracture morphology: other intra- articular Laterality: right Qualified Code(s): S52.571A - Other intraarticular fracture of lower end of right radius, initial encounter for closed fracture (7) Anxiety and depression Priority: Secondary Status: Chronic Assessment and Plan: Patient with history of depression and anxiety apparently as a result of past trauma Continue home citalopram and diazepam at lower dose Hospital course: Ms. Carter is a 82 year old female who presented to the [facility] emergency department with a chief complaint of fall and syncope. She stated she walked from her bedroom to her bathroom, splashed some water on her face and was just about to use the toilet when she passed out. She stated that she did not exactly remember the beginning of the syncopal episode but did remember hitting her head, but then did not remember hitting the floor and she woke up on the floor. Her heard the fall and came in and found her, by the time he came in she was awake and conscious and in her normal mental state. She denied any precipitating symptoms prior to the syncopal episode and any symptoms afterwards other than right wrist pain. She denied precipitating chest pain, lightheadedness, palpitations, and afterwards any bowel or bladder loss or confusion. Her review of systems unrelated to the fall is a chronic state of dyspnea on exertion, bilateral lower extremity swelling and pain that impedes her ability to ambulate other than short trips to the bathroom. Her past medical history includes atrial fibrillation, breast cancer, coronary artery disease, gastroesophageal reflux disease, hypertension, chronic kidney disease stage III, hypothyroidism. Based on her medication I am inferring that she also has a history of some chronic respiratory disease that is not documented and that she cannot name. She denies a smoking history, alcohol History, drug history. CT head and cervical spine revealed no acute process. X-ray of the hand revealed a distal intra-articular comminuted radial fracture. EKG showed sinus rhythm, bradycardia, prolonged HARPREET, left axis deviation. UA was positive for trace leukocyte esterase and so was sent for culture. Patient was admitted to observation for syncopal workup. Echocardiogram revealed EF60% mild diastolic dysfunction, carotid doppler revealed 50% stenosis on the right, non stenotic plaque on the left. Orhostatic vitals were negative for orthostatic hypotension. Diagnosis of exclusion indicates likely vasovagal etiology of syncope. PT/OT was consulted and recommended inpatient rehabilitation at discharge, citing deconditioning and weakness. She was medically stabilized but required extended stay secondary to multiple comorbidities. [facility]. Discharge discussed with: patient - Time Spent with Patient Total time spent providing and/or coordinating discharge services: - Discharge Medications Prescriptions: Cefdinir [Omnicef] 300 mg PO BID 2 Days #4 capsule diazePAM [Valium] 2 mg PO BID PRN 5 Days #10 tablet PRN Reason: Anxiety OxyCODONE/APAP 7.5/325 [Percocet 7.5/325 MG] 1 tab PO Q6H PRN 5 Days #20 tablet PRN Reason: Pain Home Medications: Allopurinol [Zyloprim 300 MG] 300 mg PO DAILY 03/20/15 [History] Docusate Sodium [Colace] 100 mg PO BID PRN 03/20/15 [History] Sulindac 150 mg PO 2XW PRN 09/03/15 [History] Gluc HCl/Csa/Collagen/Hyalur A [Glucosamine Chondroitin Cap] 1 each PO DAILY # 90 capsule 06/17/16 [Rx] Citalopram [CeleXA] 20 mg PO DAILY 04/03/16 [History] Calcium Carbonate/Vitamin D3 [Calcium 600 + Vit D Tablet] 1 each PO DAILY [History] PredniSONE [Grady] 5 mg PO BID 11/06/16 [History] Albuterol Sulfate [Ventolin Hfa] 2 puff IH Q4H PRN 09/11/17 [History] Clotrimazole/Betamethasone Dip [Lotrisone Cream] 1 applic TP TID 15 Days cream..g. 09/11/17 [Rx] Letrozole [Femara] 2.5 mg PO DAILY #90 tablet 12/04/17 [Rx] Aspirin Enteric Coated [Aspirin EC] 325 mg PO DAILY 03/29/18 [History] Calcitriol [Rocaltrol] 0.25 mcg PO DAILY 03/29/18 [History] Calcium Carbonate [Calcium] 600 mg PO BID 03/29/18 [History] Carvedilol 12.5 mg PO DAILY 03/29/18 [History] Cyanocobalamin (B-12) [Vitamin B12] 1,000 mcg IM QMONTH 03/29/18 [History] Cyanocobalamin (Vitamin B-12) [Vitamin B12] 1,000 mcg PO DAILY 03/29/18 [History ] Ergocalciferol (VITAMIN D2) [Vitamin D2] 50,000 unit PO QWEEK 03/29/18 [History] Fluticasone Propionate Nasal [Flonase] 50 mcg NS DAILY 03/29/18 [History] Furosemide [Lasix] 40 mg PO DAILY 03/29/18 [History] Gabapentin [Neurontin] 800 mg PO TID 03/29/18 [History] Levothyroxine [Synthroid] 25 mcg PO DAILY 03/29/18 [History] [place]-3/Dha/Epa/Fish Oil [Fish Oil EC 1,000 mg Softgel] 1 cap PO DAILY 03/29/18 [History] Polyethylene Glycol 3350 [MiraLAX] 17 gm PO DAILY 03/29/18 [History] Potassium Chloride [Klor-Con 10] 10 meq PO TID 03/29/18 [History] Spironolactone 25 mg PO DAILY 03/29/18 [History] metOLazone [Zaroxolyn] 2.5 mg PO DAILY 03/29/18 [History] raNITIdine HCl [Ranitidine HCl] 300 mg PO DAILY 03/29/18 [History] Cefdinir [Omnicef] 300 mg PO BID 2 Days #4 capsule 04/02/18 [Rx] OxyCODONE/APAP 7.5/325 [Percocet 7.5/325 MG] 1 tab PO Q6H PRN 5 Days #20 tablet 04/02/18 [Rx] diazePAM [Valium] 2 mg PO BID PRN 5 Days #10 tablet 04/02/18 [Rx] Allergies/Adverse Reactions: 3 Allergy/AdvReac Type Severity Reaction Status Date / Time adhesive tape Allergy Rash Verified 09/11/17 15:21 metronidazole Allergy Itching Verified 09/11/17 15:21 morphine [From Avinza] Allergy Unresponsiv Verified 09/11/17 15:21 e Quinolones Allergy Hives Verified 09/11/17 15:21 Tetracycline Allergy Hives Verified 09/11/17 15:21 morphine Allergy Hallucinati Uncoded 09/11/17 15:21 ng Date of admission: 03/30/18 18:13 Primary care physician: Rosalina Bonner CNP Discharging clinician: Artem Okeefe Anticipated date of discharge: 04/02/18 - Constitutional Vitals: Temp Pulse Resp BP Pulse Ox 98.1 F 56 16 133/70 95 04/02/18 08:07 04/02/18 08:07 04/02/18 08:07 04/02/18 08:07 04/02/18 08:07 Exam: Patient was in no acute distress, alert and oriented 3 Cranial nerves II through XII intact Heart in regular rate and rhythm, no murmur or gallop auscultated Lungs sounds were diffusely diminished without wheezes or rales auscultated Abdomen obese and soft and nontender with normal bowel sounds present Right upper extremity in sugar tong splint, sensation intact in fingers without numbness/tingling Bilateral lower extremities edematous without pitting, erythematous but non tender Skin warm and dry - Patient Status Disposition: Transfer SNF Condition: Fair Functional capacity at discharge: uses cane/walker Overall status at discharge: patient is progressing back to baseline - Discharge Instructions Follow Up With: Rosalina Bonner CNP [Primary Care Provider] - - Diet and Activity Activity: as per physical therapy Diet: advance to your usual diet <Thallapaneni,Rambabu - Last Filed: 04/02/18 14:32> Date of Encounter: 04/02/18 - Discharge Diagnosis (1) Diastolic CHF Status: Chronic Qualifiers: Heart failure chronicity: chronic Qualified Code(s): I50.32 - Chronic diastolic (congestive) heart failure (2) CKD (chronic kidney disease), stage III Status: Chronic (3) CAD (coronary artery disease) Status: Chronic Qualifiers: Coronary Disease-Associated Artery/Lesion type: [place] artery [place] vs. transplanted heart: [place] heart Associated angina: without angina Qualified Code(s): I25.10 - Atherosclerotic heart disease of [place] coronary artery without angina pectoris (4) Atrial fibrillation Status: Chronic Qualifiers: Atrial fibrillation type: chronic Qualified Code(s): I48.2 - Chronic atrial fibrillation (5) Closed fracture of distal end of radius Status: Acute Qualifiers: Encounter type: initial encounter Fracture morphology: other intra- articular Laterality: right Qualified Code(s): S52.571A - Other intraarticular fracture of lower end of right radius, initial encounter for closed fracture (6) Syncope and collapse Status: Resolved (7) Anxiety and depression Status: Chronic Hospital course: Ms. Carter is a 82 year old female - Time Spent with Patient Total time spent providing and/or coordinating discharge services: Date of admission: 03/30/18 18:13 Primary care physician: Rosalina Bonner CNP - Constitutional Vitals: Temp Pulse Resp BP Pulse Ox 98.1 F 61 16 149/85 91 04/02/18 10:52 04/02/18 10:52 04/02/18 10:52 04/02/18 10:52 04/02/18 10:52 - Attending Attestation I examined this patient and my medical decision-making was reviewed with the Resident Physician Dr. Okeefe. I agree with the documented findings, disposition and treatment plan as described except to the extent set forth below. Ms. Carter is a 82-year-old female with known past medical history of CKD stage III, hypertension, hyperlipidemia, Gerd and diastolic CHF present at the ER with fall and syncopal episode. Pt happened to have Rt fore arm distal radial fx. She was evaluated by [facility] , who recommend non operative conservative management with splint. PT / OT evaluated the pt who recommend ECF placement. No events over night. Gen: A, A< O x 3 Chest: Diminished BS b/l Heart: S1S2+ Ext: Splint placed over Rt fore arm 1. Syncope mostly ortho static so far negative work up 2. Acute Rt distal radius fx cont splint PT / OT as per Ortho 3. Rt hip pain Reviewed X ray of Rt hip - no fracture noticed 4. Chronic diastolic CHF not in exacerbation Medically stable to d/c ECF today
[2018-04-02 10:53] VITALS: BP 149/85
--- NOTE | 2018-04-02 13:37 | Physician Discharge Referral ---
ExtendedCare Referral Info Transfer To: [facility] Provider in Charge: John Provider in Charge after Transfer: PCP Institutional Level of Care: Skilled - Diagnosis (1) Syncope and collapse Priority: Primary Status: Resolved (2) Diastolic CHF Priority: Secondary Status: Chronic (3) CKD (chronic kidney disease), stage III Priority: Secondary Status: Chronic (4) CAD (coronary artery disease) Priority: Secondary Status: Chronic (5) Atrial fibrillation Priority: Secondary Status: Chronic (6) Closed fracture of distal end of radius Priority: Secondary Status: Acute (7) Anxiety and depression Priority: Secondary Status: Chronic Prognosis: Good Aware of Diagnosis: Patient Aware of Prognosis: Patient - Transfer Medications Prescriptions: Cefdinir [Omnicef] 300 mg PO BID 2 Days #4 capsule diazePAM [Valium] 2 mg PO BID PRN 5 Days #10 tablet PRN Reason: Anxiety OxyCODONE/APAP 7.5/325 [Percocet 7.5/325 MG] 1 tab PO Q6H PRN 5 Days #20 tablet PRN Reason: Pain Home Medications: Allopurinol [Zyloprim 300 MG] 300 mg PO DAILY 03/20/15 [History] Docusate Sodium [Colace] 100 mg PO BID PRN 03/20/15 [History] Sulindac 150 mg PO 2XW PRN 09/03/15 [History] Gluc HCl/Csa/Collagen/Hyalur A [Glucosamine Chondroitin Cap] 1 each PO DAILY # 90 capsule 12/28/15 [Rx] Citalopram [CeleXA] 20 mg PO DAILY 04/03/16 [History] Calcium Carbonate/Vitamin D3 [Calcium 600 + Vit D Tablet] 1 each PO DAILY [History] PredniSONE [Grady] 5 mg PO BID 11/06/16 [History] Albuterol Sulfate [Ventolin Hfa] 2 puff IH Q4H PRN 09/11/17 [History] Clotrimazole/Betamethasone Dip [Lotrisone Cream] 1 applic TP TID 15 Days cream..g. 09/11/17 [Rx] Letrozole [Femara] 2.5 mg PO DAILY #90 tablet 12/04/17 [Rx] Aspirin Enteric Coated [Aspirin EC] 325 mg PO DAILY 03/29/18 [History] Calcitriol [Rocaltrol] 0.25 mcg PO DAILY 03/29/18 [History] Calcium Carbonate [Calcium] 600 mg PO BID 03/29/18 [History] Carvedilol 12.5 mg PO DAILY 03/29/18 [History] Cyanocobalamin (B-12) [Vitamin B12] 1,000 mcg IM QMONTH 03/29/18 [History] Cyanocobalamin (Vitamin B-12) [Vitamin B12] 1,000 mcg PO DAILY 03/29/18 [History ] Ergocalciferol (VITAMIN D2) [Vitamin D2] 50,000 unit PO QWEEK 03/29/18 [History] Fluticasone Propionate Nasal [Flonase] 50 mcg NS DAILY 03/29/18 [History] Furosemide [Lasix] 40 mg PO DAILY 03/29/18 [History] Gabapentin [Neurontin] 800 mg PO TID 03/29/18 [History] Levothyroxine [Synthroid] 25 mcg PO DAILY 03/29/18 [History] [place]-3/Dha/Epa/Fish Oil [Fish Oil EC 1,000 mg Softgel] 1 cap PO DAILY 03/29/18 [History] Polyethylene Glycol 3350 [MiraLAX] 17 gm PO DAILY 03/29/18 [History] Potassium Chloride [Klor-Con 10] 10 meq PO TID 03/29/18 [History] Spironolactone 25 mg PO DAILY 03/29/18 [History] metOLazone [Zaroxolyn] 2.5 mg PO DAILY 03/29/18 [History] raNITIdine HCl [Ranitidine HCl] 300 mg PO DAILY 03/29/18 [History] Cefdinir [Omnicef] 300 mg PO BID 2 Days #4 capsule 04/02/18 [Rx] OxyCODONE/APAP 7.5/325 [Percocet 7.5/325 MG] 1 tab PO Q6H PRN 5 Days #20 tablet 04/02/18 [Rx] diazePAM [Valium] 2 mg PO BID PRN 5 Days #10 tablet 04/02/18 [Rx] Allergies/Adverse Reactions: 3 Allergy/AdvReac Type Severity Reaction Status Date / Time adhesive tape Allergy Rash Verified 09/11/17 15:21 metronidazole Allergy Itching Verified 09/11/17 15:21 morphine [From Avinza] Allergy Unresponsiv Verified 09/11/17 15:21 e Quinolones Allergy Hives Verified 09/11/17 15:21 Tetracycline Allergy Hives Verified 09/11/17 15:21 morphine Allergy Hallucinati Uncoded 09/11/17 15:21 ng - Respiratory Orders Oxygen / L per min (2L PRN) Smoking Cessation: Smoking cessation has been advised. For more information, call the [place] Tobacco Quit Line at 1-326-GKCM-NOW. - Advance Directives Code Status: Full Code - Mobility Orders Ambulate - Rehabiliation Orders Rehab Potential: Good Rehab Orders: Evaluation for Physical Therapy, Evaluation for Occupational Therapy - Diet Orders Cardiac House Supplement per Dietary: ensure CERTIFICATION: I certify that the transfer of the above named patient to an Extended Care Facility is necessary for the continuing treatment of the diagnosis listed. The above information is true and accurate reflection of patient's current condition. Confidential - Redisclosure prohibited without a patient's written consent.
[2018-04-02] MEDS: diazePAM 2 MG TABLET PO PRN (15:48)
== END 2018-04-02 16:15 | DRG 563 ==
LOC: EMEROOARM 11:37 → 3NENU 11:37
PROVIDERS: ADMIT Student in an Organized Health Care Education/Training Program; ATTEND Student in an Organized Health Care Education/Training Program